=== PATIENT | male | born 1950 | race Hispanic/Latino ===

== ENCOUNTER 2020-01-30 22:32 | Inpatient (IN) | payer MEDICARE ==
--- NOTE | 2020-01-30 22:39 | Emergency Department Report ---
ED General Adult HPI - General Chief complaint: Medical Clearance Stated complaint: HYPOTENSION PUI?: No Time Seen by Provider: 01/30/20 22:32 Source: patient, EMS Mode of arrival: Stretcher Limitations: No Limitations - History of Present Illness Initial comments: Patient is a 69-year-old male that presents emergency room with hypotension. Patient is currently a patient at [facility] on a voluntary basis. 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 Patient brought in by EMS. EMS states that the patient has been hypotensive for the last 6 hours and actually according to the blood pressure log at the facility the patient's initial blood pressures morning was 70/50 and has been increasing. [facility] to be transferred to the ER for management of his hypotension. Patient's blood pressure by EMS was 96/60. Patient denies chest pain. Patient has shortness of breath. Patient denies weakness. Patient denies any physical complaints. Patient states he is hungry. Patient has a past medical history of CHF, A. fib, periodic hypotension, CKD 3, hypertension, neuropathy, pacemaker placement, diabetes. Patient's documents from [facility] reviewed. Patient denies recent travel. Patient denies recent international travel. Patient denies exposure to the novel coronavirus. Patient denies sick contacts. Patient denies fever and chills. Patient denies cough. Patient denies diarrhea. Patient denies coming in contact with anybody with symptoms of the novel coronavirus. -: Sudden Severity scale (0 -10): 0 Associated Symptoms: denies other symptoms. denies: confusion, chest pain, cough, diaphoresis, fever/chills, headaches, loss of appetite, malaise, nausea/vomiting, rash, seizure, shortness of breath, syncope, weakness Treatments Prior to Arrival: none - Related Data Home Medications Medication Instructions Recorded Confirmed Last Taken Amiodarone [Cordarone 200 MG TAB] 200 mg PO BID 01/25/20 01/31/20 01/23/20 21:00 Atorvastatin [Lipitor] 40 mg PO QHS 01/25/20 01/31/20 01/23/20 21:00 Gabapentin 300 mg PO QHS 01/31/20 01/31/20 Unknown Potassium Chloride 10 meq PO QDAY 01/31/20 01/31/20 Unknown Torsemide [Demadex] 20 mg PO BID 01/31/20 01/31/20 Unknown Previous Rx's Medication Instructions Recorded Last Taken Type Aspirin EC [Halfprin EC] 81 mg PO QDAY #30 tablet 01/26/20 Unknown Rx Allergies Allergy/AdvReac Type Severity Reaction Status Date / Time No Known Allergies Allergy Unverified 01/22/20 19:59 ED Review of Systems ROS: Stated complaint: HYPOTENSION Other details as noted in HPI Constitutional: denies: chills, fever Eyes: denies: eye pain, eye discharge, vision change ENT: denies: ear pain, throat pain Respiratory: denies: cough, shortness of breath, wheezing Cardiovascular: denies: chest pain, palpitations Endocrine: no symptoms reported Gastrointestinal: denies: abdominal pain, nausea, diarrhea Genitourinary: denies: urgency, dysuria Musculoskeletal: denies: back pain, joint swelling, arthralgia Skin: denies: rash, lesions Neurological: denies: headache, weakness, paresthesias Psychiatric: denies: anxiety, depression Hematological/Lymphatic: denies: easy bleeding, easy bruising ED Past Medical Hx - Past Medical History Previous Medical History?: Yes Hx Hypertension: Yes Hx Congestive Heart Failure: Yes Hx Diabetes: Yes Hx Renal Disease: Yes Hx Psychiatric Treatment: Yes Additional medical history: A. fib, pacemaker, periodic hypotension - Surgical History Past Surgical History?: Yes Hx Pacemaker: Yes - Family History Family history: no significant - Social History Smoking Status: Former Smoker Substance Use Type: None - Medications Home Medications: Home Medications Medication Instructions Recorded Confirmed Last Taken Type Amiodarone [Cordarone 200 MG TAB] 200 mg PO BID 01/25/20 01/31/20 01/23/20 21:00 History Atorvastatin [Lipitor] 40 mg PO QHS 01/25/20 01/31/20 01/23/20 21:00 History Aspirin EC [Halfprin EC] 81 mg PO QDAY #30 tablet 01/26/20 01/31/20 Unknown Rx Gabapentin 300 mg PO QHS 01/31/20 01/31/20 Unknown History Potassium Chloride 10 meq PO QDAY 01/31/20 01/31/20 Unknown History Torsemide [Demadex] 20 mg PO BID 01/31/20 01/31/20 Unknown History ED Physical Exam - General Limitations: No Limitations General appearance: alert, in no apparent distress - Head Head exam: Present: atraumatic, normocephalic - Eye Eye exam: Present: normal appearance, PERRL Pupils: Present: normal accommodation - ENT ENT exam: Present: mucous membranes moist - Neck Neck exam: Present: normal inspection - Respiratory Respiratory exam: Present: normal lung sounds bilaterally. Absent: respiratory distress, wheezes, rales - Cardiovascular Cardiovascular Exam: Present: regular rate, normal rhythm. Absent: systolic murmur, diastolic murmur, rubs, gallop - GI/Abdominal GI/Abdominal exam: Present: soft, normal bowel sounds - Rectal Rectal exam: Present: deferred - Extremities Exam Extremities exam: Present: normal inspection - Back Exam Back exam: Present: normal inspection - Neurological Exam Neurological exam: Present: alert, oriented X3 - Psychiatric Psychiatric exam: Present: normal affect, normal mood - Skin Skin exam: Present: warm, dry, intact, normal color. Absent: rash ED Course Vital Signs 01/30/20 01/30/20 01/30/20 22:54 22:56 23:00 Temperature 97.4 F L Pulse Rate 69 68 69 Respiratory 19 18 13 Rate Blood Pressure Blood Pressure 87/61 [Left] O2 Sat by Pulse 98 76 L Oximetry 01/30/20 01/31/20 01/31/20 23:05 00:00 01:00 Temperature Pulse Rate 66 68 Respiratory 18 18 20 Rate Blood Pressure 92/62 94/62 Blood Pressure [Left] O2 Sat by Pulse 99 98 Oximetry - Reevaluation(s) Reevaluation #1: Initial evaluation done. Patient's blood pressure above 90. We will connect the patient to our telemetry monitor and monitor blood pressure and give him some fluids. 01/30/20 22:32 Reevaluation #2: Patient's blood pressure is currently 99/60. Patient is resting comfortably in bed. Patient denies pain. Patient denies weakness. We will hold the patient's fluid at this time. Patient tolerated p.o. intake. 01/30/20 23:41 Reevaluation #3: Nurses unable to obtain peripheral IV. Right EJ placed. See procedure note. Fluids will be started at 250. 01/31/20 00:50 Reevaluation #4: I discussed all results with patient. I discussed plan of care with patient. Patient agrees with plan of care and admission. Patient to be admitted to the hospitalist service. 01/31/20 02:04 - Consultations Consultation #1: Hospitalist consulted for admission. Hospitalist to admit patient. 01/31/20 02:04 - EJ/Peripheral Line Neck R Time Out Performed: Yes Indications: nurses unable to establis Skin Cleansed in Sterile Fashion: Yes Size: 18 Dressing Placed: Tegaderm, tape Patient Tolerated Procedure: well, no complications ED Medical Decision Making - Lab Data Result diagrams: 01/30/20 22:58 01/30/20 22:58 - EKG Data -: EKG Interpreted by Me EKG shows normal: sinus rhythm, ST-T waves Rate: normal - EKG Data Interpretation: other (Wide QRS, paced rhythm, axis deviation) - Medical Decision Making Patient is a 69-year-old male that presents emergency room from a local psychiatric facility for management of his low blood pressure. Patient was found to be hypotensive. Patient is asymptomatic. Patient given fluids and his blood pressure improved. Patient had labs done which were consistent with acute renal failure. Patient appears to have chronic renal failure and his creatinine increased from 2-3 in less than a week. Patient was recently discharged from this hospital. Patient's EKG is abnormal but shows no acute findings. Patient admitted to the hospitalist service - Differential Diagnosis Hypotension, electrolyte imbalance, dehydration, kidney failure Critical Care Time: Yes Critical care time in (mins) excluding proc time.: 35 Critical care attestation.: If time is entered above; I have spent that time in minutes in the direct care of this critically ill patient, excluding procedure time. Critical Care Time: 35 minutes ED Disposition Clinical Impression: Hyponatremia, Dehydration, Elevated troponin Hypotension Qualifiers: Hypotension type: unspecified hypotension type Qualified Code(s): I95.9 - Hypotension, unspecified Acute renal failure Qualifiers: Acute renal failure type: unspecified Qualified Code(s): N17.9 - Acute kidney failure, unspecified Disposition: -09 OP ADMIT IP TO THIS HOSP Is pt being admited?: Yes Does the pt Need Aspirin: No Condition: Critical Time of Disposition: 02:57
[2020-01-30 23:13] LABS: Hemoglobin 10.8 gm/dl (11.8-15.2); Mean Corpuscular HGB Conc 33 % (32-34); Mean Corpuscular Volume 97 fl (84-94); Platelet Count 152 K/mm3 (140-440); Red Blood Count 3.39 M/mm3 (3.65-5.03); Red Cell Distribution Width 18.2 % (13.2-15.2)
[2020-01-30] MEDS: SODIUM CHLORIDE 0.9% 1000 ML 1,000 ML IV ONE (23:53)
[2020-01-31 00:07] LABS: Albumin 2.7 g/dL (3.9-5); Calcium 8.7 mg/dL (8.4-10.2)
[2020-01-31] MEDS: SODIUM CHLORIDE 0.9% 1000 ML 1,000 ML IV ONE (01:03)
[2020-01-31] MEDS ORDERED: ONDANSETRON 4 MG/2 ML INJ IV PRN (02:39)
[2020-01-31] MEDS ORDERED: MAGNESIUM HYDROXIDE (MOM) ORAL LIQD UDC PO PRN (02:39)
[2020-01-31] MEDS ORDERED: DEXTROSE 50% IN WATER (25GM) 50 ML SYRINGE IV PRN (02:40)
--- NOTE | 2020-01-31 02:48 | History and Physical Report ---
History of Present Illness Date of examination: 01/31/20 Date of admission: 01/31/2020 Chief complaint: Hypotension Depression History of present illness: 69 year-old male who was brought in from [facility] for hypotension. Patient was said to be hypotensive for couple of hours prior to reporting to the emergency room. Initial blood pressure was said to be 70s systolic and 50s diastolic. Patient has been at the psychiatric facility for depression. He also has significant past medical history of A. fib, CHF, chronic kidney disease stage III, hypertension, diabetes mellitus and neuropathy. He has a pacemaker in place. Patient denies any sick contacts and no recent travel. No contact with anyone with COVID-19. Upon arrival in the emergency room patient received some IV fluid with improvement in his blood pressure. Work-up in the emergency room however reveals slight bump in his creatinine from 2 to 3. Past History Past Medical History: atrial fib, diabetes, heart failure, other (Neuropathy) Past Surgical History: Other (Pacemaker placement) Social history: smoking (Former smoker) Family history: no significant family history Medications and Allergies Allergies Allergy/AdvReac Type Severity Reaction Status Date / Time No Known Allergies Allergy Unverified 01/22/20 19:59 Home Medications Medication Instructions Recorded Confirmed Last Taken Type Amiodarone [Cordarone 200 MG TAB] 200 mg PO BID 01/25/20 01/31/20 01/23/20 21:00 History Atorvastatin [Lipitor] 40 mg PO QHS 01/25/20 01/31/20 01/23/20 21:00 History Aspirin EC [Halfprin EC] 81 mg PO QDAY #30 tablet 01/26/20 01/31/20 Unknown Rx Gabapentin 300 mg PO QHS 01/31/20 01/31/20 Unknown History Potassium Chloride 10 meq PO QDAY 01/31/20 01/31/20 Unknown History Torsemide [Demadex] 20 mg PO BID 01/31/20 01/31/20 Unknown History Active Meds: Active Medications Acetaminophen (Tylenol) 650 mg PO Q4H PRN PRN Reason: Pain MILD(1-3)/Fever >100.5/MORENO Dextrose (D50w (25gm) Syringe) 50 ml IV Q30MIN PRN; Protocol PRN Reason: Hypoglycemia Sodium Chloride (Nacl 0.9% 1000 Ml) 1,000 mls @ 75 mls/hr IV DIRECT RINA Insulin Human Lispro (Humalog) 0 unit SUB-Q ACHS RINA; Protocol Magnesium Hydroxide (Milk Of Magnesia) 30 ml PO Q4H PRN PRN Reason: Constipation Ondansetron HCl (Zofran) 4 mg IV Q8H PRN PRN Reason: Nausea And Vomiting Sodium Chloride (Sodium Chloride Flush Syringe 10 Ml) 10 ml IV BID RINA Sodium Chloride (Sodium Chloride Flush Syringe 10 Ml) 10 ml IV PRN PRN PRN Reason: LINE FLUSH Review of Systems Constitutional: no fever, no chills Ears, nose, mouth and throat: no nasal congestion, no sore throat Cardiovascular: no chest pain, no palpitations Respiratory: no cough, no shortness of breath Gastrointestinal: no abdominal pain, no nausea, no vomiting, no diarrhea Genitourinary Male: no dysuria, no hematuria, no flank pain Musculoskeletal: no neck pain, no low back pain Integumentary: no rash, no pruritis Neurological: no headaches, no confusion Psychiatric: depression, no anxiety Exam - Constitutional Vitals: Temp Pulse Resp BP Pulse Ox 97.4 F L 68 20 94/62 98 01/30/20 22:56 01/31/20 01:00 01/31/20 01:00 01/31/20 01:00 01/31/20 00:00 General appearance: Present: no acute distress, well-nourished - EENT Eyes: Present: PERRL, EOM intact. Absent: scleral icterus ENT: hearing intact, clear oral mucosa, dentition normal - Neck Neck: Present: supple, normal ROM - Respiratory Respiratory effort: normal Respiratory: bilateral: CTA - Cardiovascular Rhythm: irregularly irregular Heart Sounds: Present: S1 & S2. Absent: gallop, rub - Extremities Extremities: no ischemia, pulses intact, pulses symmetrical, No edema, Full ROM Extremity abnormal: edema (2+ bilateral lower extremity edema) Peripheral Pulses: within normal limits - Abdominal General gastrointestinal: Present: soft, non-tender, non-distended, normal bowel sounds - Integumentary Integumentary: Present: clear, warm, dry. Absent: jaundice, rash - Musculoskeletal Musculoskeletal: strength equal bilaterally - Psychiatric Psychiatric: appropriate mood/affect, intact judgment & insight, memory intact, cooperative - Neurologic Neurologic: CNII-XII intact, moves all extremities HEART Score - HEART Score Troponin: Troponin T 0.207 ng/mL (0.00-0.029) H* 01/31/20 01:01 Results - Labs CBC & Chem 7: 01/30/20 22:58 01/30/20 22:58 Labs: Abnormal lab results 01/30/20 01/30/20 01/31/20 Range/Units 22:58 22:58 01:01 RBC 3.39 L (3.65-5.03) M/mm3 Hgb 10.8 L (11.8-15.2) gm/dl Hct 33.0 L (35.5-45.6) % MCV 97 H (84-94) fl RDW 18.2 H (13.2-15.2) % Sodium 131 L D (137-145) mmol/L Carbon Dioxide 10 L (22-30) mmol/L BUN 58 H (9-20) mg/dL Creatinine 3.0 H (0.8-1.5) mg/dL Glucose 159 H (75-100) mg/dL Total Bilirubin 1.90 H (0.1-1.2) mg/dL AST 149 H (5-40) units/L ALT 546 H (7-56) units/L Troponin T 0.207 H* (0.00-0.029) ng/mL Albumin 2.7 L (3.9-5) g/dL Assessment and Plan - Patient Problems (1) Hypotension Current Visit: Yes Status: Acute Qualifiers: Hypotension type: unspecified hypotension type Qualified Code(s): I95.9 - Hypotension, unspecified Plan to address problem: Patient has received some IV fluid with significant improvement in his blood pressure. Will monitor vital signs closely. (2) Diabetes mellitus Current Visit: Yes Status: Acute Plan to address problem: We will monitor Accu-Cheks and continue routine home medications. (3) Depression Current Visit: Yes Status: Acute Plan to address problem: Patient will be closely monitored and will also place a consult to mental health for further evaluation and recommendation. (4) Dehydration Current Visit: Yes Status: Acute Plan to address problem: Patient receiving gentle IV fluid rehydration (5) DVT prophylaxis Current Visit: No Status: Acute Plan to address problem: Placed on subcutaneous heparin. (6) Full code status Current Visit: No Status: Acute
[2020-01-31 02:50] LABS: Chol/HDL Ratio 4.31 %
[2020-01-31] MEDS: SODIUM CHLORIDE 0.9% 1000 ML 1,000 ML IV SCH ×2 (05:00→20:00)
[2020-01-31] MEDS: INSULIN LISPRO 100 UNIT/ML SUB-Q SCH ×4 (09:20→21:51)
[2020-01-31 10:09] LABS: Calcium 8.7 mg/dL (8.4-10.2)
--- NOTE | 2020-01-31 13:46 | Event Note ---
Date: 01/31/20 Patient seen and examined. This is a follow-up from an admission earlier this morning. We will continue to plan as outlined in H&P. Total visit equals 35 minutes with greater than 50% spent on coordination of care and counseling.
--- NOTE | 2020-01-31 18:41 | Consultation ---
History of Present Illness - Reason for Consult Consult date: 01/31/20 Reason for consult: MHE Requesting physician: ARNOL GRANT III - Chief Complaint Chief complaint: Hypotension Depression - History of Present Psychiatric Illness Per ED Provider: Patient is a 69-year-old male that presents emergency room with hypotension. Patient is currently a patient at [facility] on a voluntary basis. 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 Patie nt brought in by EMS. EMS states that the patient has been hypotensive for the last 6 hours and actually according to the blood pressure log at the facility the patient's initial blood pressures morning was 70/50 and has been increasing. [facility] to be transferred to the ER for management of his hypotension. Patient's blood pressure by EMS was 96/60. Patient denies chest pain. Patient has shortness of breath. Patient denies weakness. Patient denies any physical complaints. Patient states he is hungry. Patient has a past medical history of CHF, A. fib, periodic hypotension, CKD 3, hypertension, neuropathy, pacemaker placement, diabetes. HPI Patient is a 69 year old , disabled male with Past Psychiatry history of MDD and multiple medical comorbidty presented for MHE due to Depression. Patient was admitted to this facility for medical reasons but was at [facility] for psychiatric management of depression voluntarily. Patient states that he is very depressed, and his depression is mostly due to his medical condition because he cannot get rid of what he got and he keeps getting admitted for medical reasons. Patients state that he is not suicidal and does not want to , he says he has a dog currenlty living with his friend that he loves very much, states he would have been happier if they let him have his wallet because his friends phone number is inside and he would like to atleast call and let them know where and how he is doing. He denies any SI, HI, AVH. Patients states he has lost both of his parents, his only son does not want to talk to him because he the mother and does not have any family support. PAST PSYCHIATRIC HISTORY Diagnoses: MDD Suicide attempts or Self-harm behavior: None reported Prior psychiatric hospitalizations: Yes at multiple facilities Substance Abuse history:none reported Previous psychiatric medications tried: YES Outpatient treatment: Yes but provider name unknown PAST MEDICAL HISTORY: Afib, CKD, CHF, HTN Family Psychiatric History: none reported SOCIAL HISTORY Marital Status: Living Arrangements: Lives with a friend Employment Status: Retired Access to guns/weapons: None reported Education: College History of Abuse: None reported Legal History: None reported REVIEW OF SYSTEMS Constitutional: Negative for weight loss ENT: Negative for stridor Respiratory: Negative for cough or hemoptysis All other systems reviewed and are negative MENTAL STATUS EXAMINATION General Appearance and Behavior: Disheveled , age appropriate, wearing appropriate clothes, lying in bed, good eye contact, cooperative Cooperation: Participating/engaged Psychomotor Behavior: unremarkable and within normal limits Mood: depressed Affect and affective range: Congruent with mood Thought Process: Logical Thought Content: within reality Speech: Normal volume, Regular rate and rhythm Intellectual Functioning: Average Suicidal Ideation: Denies Homicidal Ideation: Denies HI Impulse Control: Unimpaired Insight and Judgment: Normal insight and judgment. Memory: Normal Attention: Normal Orientation: Alert, oriented Assessment and Plan - Psychiatric problem (1) Acute schizophrenic episode (2) Bipolar 1 manic Current Visit: Yes Status: Acute RECOMMENDATIONS I offered to start patient on medication for Depression but patient declined. Pt denies SI, HI and does not present with any psychotic features. Risks, benefits and alternatives of medications discussed with the patient, ques tions answered and consent obtained from patient. PSYCHOTHERAPY: Supportive psychotherapy provided MEDICAL: Per primary team DELIRIUM PRECAUTIONS: Please re-orient patient frequently, keep lights on during the day, and minimize benzodiazepines and opiates as these medications could worsen patient's confusion. 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 Will sign off Thank you for the consult. Please contact with any questions and/or concerns. Medications and Allergies Allergies Allergy/AdvReac Type Severity Reaction Status Date / Time No Known Allergies Allergy Unverified 01/22/20 19:59 Home Medications Medication Instructions Recorded Confirmed Last Taken Type Amiodarone [Cordarone 200 MG TAB] 200 mg PO BID 01/25/20 01/31/20 01/23/20 21:00 History Atorvastatin [Lipitor] 40 mg PO QHS 01/25/20 01/31/20 01/23/20 21:00 History Aspirin EC [Halfprin EC] 81 mg PO QDAY #30 tablet 01/26/20 01/31/20 Unknown Rx Gabapentin 300 mg PO QHS 01/31/20 01/31/20 Unknown History Potassium Chloride 10 meq PO QDAY 01/31/20 01/31/20 Unknown History Torsemide [Demadex] 20 mg PO BID 01/31/20 01/31/20 Unknown History Active Meds: Active Medications Acetaminophen (Tylenol) 650 mg PO Q4H PRN PRN Reason: Pain MILD(1-3)/Fever >100.5/MORENO Dextrose (D50w (25gm) Syringe) 0 ml IV Q30MIN PRN; Protocol PRN Reason: Hypoglycemia Sodium Chloride (Nacl 0.9% 1000 Ml) 1,000 mls @ 75 mls/hr IV DIRECT RINA Last Admin: 01/31/20 05:00 Dose: 75 mls/hr Documented by: Insulin Human Lispro (Humalog) 0 unit SUB-Q ACHS RINA; Protocol Last Admin: 01/31/20 17:05 Dose: 2 unit Documented by: Magnesium Hydroxide (Milk Of Magnesia) 30 ml PO Q4H PRN PRN Reason: Constipation Ondansetron HCl (Zofran) 4 mg IV Q8H PRN PRN Reason: Nausea And Vomiting Sodium Chloride (Sodium Chloride Flush Syringe 10 Ml) 10 ml IV BID [facility] Last Admin: 01/31/20 09:25 Dose: 10 ml Documented by: Sodium Chloride (Sodium Chloride Flush Syringe 10 Ml) 10 ml IV PRN PRN PRN Reason: LINE FLUSH Mental Status Exam - Vital signs Last Vital Signs Temp 98.1 F 01/31/20 08:05 Pulse 70 01/31/20 05:00 Resp 18 01/31/20 08:05 BP 103/75 01/31/20 08:05 Pulse Ox 95 01/31/20 05:10 Results Result Diagrams: 01/30/20 22:58 01/31/20 09:25 Abnormal lab results 01/30/20 01/30/20 01/31/20 Range/Units 22:58 22:58 01:01 RBC 3.39 L (3.65-5.03) M/mm3 Hgb 10.8 L (11.8-15.2) gm/dl Hct 33.0 L (35.5-45.6) % MCV 97 H (84-94) fl RDW 18.2 H (13.2-15.2) % Sodium 131 L D (137-145) mmol/L Potassium (3.6-5.0) mmol/L Carbon Dioxide 10 L (22-30) mmol/L BUN 58 H (9-20) mg/dL Creatinine 3.0 H (0.8-1.5) mg/dL Glucose 159 H (75-100) mg/dL POC Glucose (70-105) Total Bilirubin 1.90 H (0.1-1.2) mg/dL AST 149 H (5-40) units/L ALT 546 H (7-56) units/L Troponin T 0.207 H* (0.00-0.029) ng/mL Albumin 2.7 L (3.9-5) g/dL LDL Cholesterol Direct 36 L (50-130) mg/dL HDL Cholesterol 19 L (40-59) mg/dL 01/31/20 01/31/20 01/31/20 Range/Units 07:46 09:25 11:39 RBC (3.65-5.03) M/mm3 Hgb (11.8-15.2) gm/dl Hct (35.5-45.6) % MCV (84-94) fl RDW (13.2-15.2) % Sodium 134 L (137-145) mmol/L Potassium 5.1 H (3.6-5.0) mmol/L Carbon Dioxide 19 L D (22-30) mmol/L BUN 59 H (9-20) mg/dL Creatinine 3.5 H (0.8-1.5) mg/dL Glucose 150 H (75-100) mg/dL POC Glucose 154 H 177 H (70-105) Total Bilirubin (0.1-1.2) mg/dL AST (5-40) units/L ALT (7-56) units/L Troponin T (0.00-0.029) ng/mL Albumin (3.9-5) g/dL LDL Cholesterol Direct (50-130) mg/dL HDL Cholesterol (40-59) mg/dL 01/31/20 Range/Units 15:55 RBC (3.65-5.03) M/mm3 Hgb (11.8-15.2) gm/dl Hct (35.5-45.6) % MCV (84-94) fl RDW (13.2-15.2) % Sodium (137-145) mmol/L Potassium (3.6-5.0) mmol/L Carbon Dioxide (22-30) mmol/L BUN (9-20) mg/dL Creatinine (0.8-1.5) mg/dL Glucose (75-100) mg/dL POC Glucose 162 H (70-105) Total Bilirubin (0.1-1.2) mg/dL AST (5-40) units/L ALT (7-56) units/L Troponin T (0.00-0.029) ng/mL Albumin (3.9-5) g/dL LDL Cholesterol Direct (50-130) mg/dL HDL Cholesterol (40-59) mg/dL All other labs normal.
[2020-02-01 05:35] LABS: Hematocrit 34.6 % (35.5-45.6); Hemoglobin 11.2 gm/dl (11.8-15.2); Mean Corpuscular HGB Conc 32 % (32-34); Mean Corpuscular Volume 95 fl (84-94); Platelet Count 164 K/mm3 (140-440); Red Blood Count 3.65 M/mm3 (3.65-5.03); Red Cell Distribution Width 17.4 % (13.2-15.2)
[2020-02-01 05:56] LABS: INR 1.88 (0.87-1.13)
[2020-02-01 06:20] LABS: BUN/Creatinine Ratio TNR; Blood Urea Nitrogen TNR mg/dL (9-20)
[2020-02-01 06:21] LABS: Calcium TNR mg/dL (8.4-10.2); Hemolysis Index TNR
[2020-02-01 06:59] LABS: Anisocytosis Few; Basophils % (Manual) 0 % (0.0-1.8); Eosinophils % (Manual) 0 % (0.0-4.3); Total Cells Counted 100
[2020-02-01 07:00] LABS: Macrocytosis Few; Ovalocytes Few; Platelet Estimate Consistent w Auto
[2020-02-01 09:38] LABS: Calcium 8.7 mg/dL (8.4-10.2)
--- NOTE | 2020-02-01 09:40 | Progress Note ---
Assessment and Plan Assessment and plan: Hypotension. Patient is s/p IV fluid hydration and blood pressure has stabilized. Asymptomatic. ALONSO on CKD. Patient appears to have a baseline creatinine of 2.0 which has increased to 3.5 since admission. Nephrology consultation. Acute schizophrenic episode/bipolar 1/manic. Psychiatry reports that the patient meets the requirement for acute inpatient psychiatric treatment. History Interval history: No new issues overnight. Hospitalist Physical - Constitutional Vitals: Temp Pulse Resp BP Pulse Ox 98.1 F 64 20 100/66 93 02/01/20 05:31 02/01/20 05:31 02/01/20 05:31 02/01/20 05:31 02/01/20 09:14 General appearance: Present: no acute distress, well-nourished - EENT Eyes: Present: PERRL, EOM intact ENT: hearing intact, clear oral mucosa, dentition normal - Neck Neck: Present: supple, normal ROM - Respiratory Respiratory effort: normal Respiratory: bilateral: CTA - Cardiovascular Rhythm: regular Heart Sounds: Present: S1 & S2. Absent: gallop, rub - Extremities Extremities: no ischemia, No edema, Full ROM - Abdominal General gastrointestinal: soft, non-tender, non-distended, normal bowel sounds - Integumentary Integumentary: Present: clear, warm, dry - Neurologic Neurologic: CNII-XII intact, moves all extremities HEART Score - HEART Score Troponin: Troponin T 0.207 ng/mL (0.00-0.029) H* 01/31/20 01:01 Results - Labs CBC & Chem 7: 02/01/20 05:11 02/01/20 05:11 Labs: Laboratory Last Values WBC 8.9 K/mm3 (4.5-11.0) 02/01/20 05:11 RBC 3.65 M/mm3 (3.65-5.03) 02/01/20 05:11 Hgb 11.2 gm/dl (11.8-15.2) L 02/01/20 05:11 Hct 34.6 % (35.5-45.6) L 02/01/20 05:11 MCV 95 fl (84-94) H 02/01/20 05:11 MCH 31 pg (28-32) 02/01/20 05:11 MCHC 32 % (32-34) 02/01/20 05:11 RDW 17.4 % (13.2-15.2) H 02/01/20 05:11 Plt Count 164 K/mm3 (140-440) 02/01/20 05:11 Mccormick % (Auto) Auto Camp Attendant 02/01/20 05:11 Add Manual Diff Complete 02/01/20 05:11 Total Counted 100 02/01/20 05:11 Seg Neuts % (Manual) 76.0 % (40.0-70.0) H 02/01/20 05:11 Band Neutrophils % 0 % 02/01/20 05:11 Lymphocytes % (Manual) 20.0 % (13.4-35.0) 02/01/20 05:11 Reactive Lymphs % (Man) 0 % 02/01/20 05:11 Monocytes % (Manual) 4.0 % (0.0-7.3) 02/01/20 05:11 Eosinophils % (Manual) 0 % (0.0-4.3) 02/01/20 05:11 Basophils % (Manual) 0 % (0.0-1.8) 02/01/20 05:11 Metamyelocytes % 0 % 02/01/20 05:11 Myelocytes % 0 % 02/01/20 05:11 Promyelocytes % 0 % 02/01/20 05:11 Blast Cells % 0 % 02/01/20 05:11 Nucleated RBC % Not Reportable 02/01/20 05:11 Seg Neutrophils # Man 6.8 K/mm3 (1.8-7.7) 02/01/20 05:11 Band Neutrophils # 0.0 K/mm3 02/01/20 05:11 Lymphocytes # (Manual) 1.8 K/mm3 (1.2-5.4) 02/01/20 05:11 Abs React Lymphs (Man) 0.0 K/mm3 02/01/20 05:11 Monocytes # (Manual) 0.4 K/mm3 (0.0-0.8) 02/01/20 05:11 Eosinophils # (Manual) 0.0 K/mm3 (0.0-0.4) 02/01/20 05:11 Basophils # (Manual) 0.0 K/mm3 (0.0-0.1) 02/01/20 05:11 Metamyelocytes # 0.0 K/mm3 02/01/20 05:11 Myelocytes # 0.0 K/mm3 02/01/20 05:11 Promyelocytes # 0.0 K/mm3 02/01/20 05:11 Blast Cells # 0.0 K/mm3 02/01/20 05:11 WBC Morphology Not Reportable 02/01/20 05:11 Hypersegmented Neuts Not Reportable 02/01/20 05:11 Hyposegmented Neuts Not Reportable 02/01/20 05:11 Hypogranular Neuts Not Reportable 02/01/20 05:11 Smudge Cells Not Reportable 02/01/20 05:11 Toxic Granulation Not Reportable 02/01/20 05:11 Toxic Vacuolation Not Reportable 02/01/20 05:11 Dohle Bodies Not Reportable 02/01/20 05:11 Pelger-Huet Anomaly Not Reportable 02/01/20 05:11 Justin Rods Not Reportable 02/01/20 05:11 Platelet Estimate Consistent w auto 02/01/20 05:11 Clumped Platelets Not Reportable 02/01/20 05:11 Plt Clumps, EDTA Not Reportable 02/01/20 05:11 Large Platelets Not Reportable 02/01/20 05:11 Giant Platelets Not Reportable 02/01/20 05:11 Platelet Satelliting Not Reportable 02/01/20 05:11 Plt Morphology Comment Not Reportable 02/01/20 05:11 RBC Morphology Not Reportable 02/01/20 05:11 Dimorphic RBCs Not Reportable 02/01/20 05:11 Polychromasia Not Reportable 02/01/20 05:11 Hypochromasia Not Reportable 02/01/20 05:11 Poikilocytosis Not Reportable 02/01/20 05:11 Anisocytosis Few 02/01/20 05:11 Microcytosis Few 02/01/20 05:11 Macrocytosis Few 02/01/20 05:11 Spherocytes Not Reportable 02/01/20 05:11 Pappenheimer Bodies Not Reportable 02/01/20 05:11 Sickle Cells Not Reportable 02/01/20 05:11 Target Cells Not Reportable 02/01/20 05:11 Tear Drop Cells Not Reportable 02/01/20 05:11 Ovalocytes Few 02/01/20 05:11 Helmet Cells Not Reportable 02/01/20 05:11 Albert-Derwood Bodies Not Reportable 02/01/20 05:11 [place] Rings Not Reportable 02/01/20 05:11 Bonner Cells Not Reportable 02/01/20 05:11 Bite Cells Not Reportable 02/01/20 05:11 Crenated Cell Not Reportable 02/01/20 05:11 Elliptocytes Not Reportable 02/01/20 05:11 Acanthocytes (Spur) Not Reportable 02/01/20 05:11 Rouleaux Not Reportable 02/01/20 05:11 Hemoglobin C Crystals Not Reportable 02/01/20 05:11 Schistocytes Not Reportable 02/01/20 05:11 Malaria parasites Not Reportable 02/01/20 05:11 Fab Bodies Not Reportable 02/01/20 05:11 Hem Pathologist Commnt No 02/01/20 05:11 PT 21.6 Sec. (12.2-14.9) H 02/01/20 05:11 INR 1.88 (0.87-1.13) H 02/01/20 05:11 Sodium TNR 02/01/20 05:11 Potassium TNR 02/01/20 05:11 Chloride TNR 02/01/20 05:11 Carbon Dioxide TNR 02/01/20 05:11 Anion Gap TNR 02/01/20 05:11 BUN TNR 02/01/20 05:11 Creatinine TNR 02/01/20 05:11 Estimated GFR TNR 02/01/20 05:11 BUN/Creatinine Ratio TNR 02/01/20 05:11 Glucose TNR 02/01/20 05:11 POC Glucose 137 (70-105) H 02/01/20 08:15 Calcium TNR 02/01/20 05:11 Total Bilirubin 1.90 mg/dL (0.1-1.2) H 01/30/20 22:58 AST 149 units/L (5-40) H 01/30/20 22:58 ALT 546 units/L (7-56) H 01/30/20 22:58 Alkaline Phosphatase 120 units/L (35-129) 01/30/20 22:58 Troponin T 0.207 ng/mL (0.00-0.029) H* 01/31/20 01:01 Total Protein 7.3 g/dL (6.3-8.2) 01/30/20 22:58 Albumin 2.7 g/dL (3.9-5) L 01/30/20 22:58 Albumin/Globulin Ratio 0.6 % 01/30/20 22:58 Triglycerides 137 mg/dL (2-149) 01/31/20 01:01 Cholesterol 82 mg/dL (50-199) 01/31/20 01:01 LDL Cholesterol Direct 36 mg/dL (50-130) L 01/31/20 01:01 HDL Cholesterol 19 mg/dL (40-59) L 01/31/20 01:01 Cholesterol/HDL Ratio 4.31 % 01/31/20 01:01 Nasal Screen MRSA (PCR) Negative (Negative) 01/31/20 Unknown Menezes/IV: Voiding Method Urinal IV Catheter Type [right ej] Peripheral IV Active Medications - Current Medications Current Medications: Generic Name Dose Route Start Last Admin Trade Name Freq PRN Reason Stop Dose Admin Acetaminophen 650 mg 01/31/20 02:39 Tylenol PO Q4H PRN Pain MILD(1-3)/Fever >100.5/MORENO Dextrose 0 ml 01/31/20 02:40 D50w (25gm) Syringe IV Q30MIN PRN Hypoglycemia Protocol Sodium Chloride 1,000 mls @ 75 mls/hr 01/31/20 02:45 01/31/20 20:00 Nacl 0.9% 1000 Ml IV 75 mls/hr DIRECT RINA Administration Insulin Human Lispro 0 unit 01/31/20 07:30 01/31/20 21:51 Humalog SUB-Q Not Given ACHS RINA Protocol Magnesium Hydroxide 30 ml 01/31/20 02:39 Milk Of Magnesia PO Q4H PRN Constipation Ondansetron HCl 4 mg 01/31/20 02:39 Zofran IV Q8H PRN Nausea And Vomiting Sodium Chloride 10 ml 01/31/20 10:00 01/31/20 21:51 Sodium Chloride Flush Syringe 10 Ml IV 10 ml BID RINA Administration Sodium Chloride 10 ml 01/31/20 02:39 Sodium Chloride Flush Syringe 10 Ml IV PRN PRN LINE FLUSH Nutrition/Malnutrition Assess - Dietary Evaluation Nutrition/Malnutrition Findings: Nutrition Notes Start: 01/31/20 14:23 Freq: Status: Active Protocol: Document 01/31/20 14:23 LP (Rec: 01/31/20 14:29 LP [id number]) Nutrition Notes Need for Assessment generated from: MD Order Initial or Follow up Assessment Current Diagnosis CKD(stage I-IV),Diabetes, Hypertension,Heart Failure Other Pertinent Diagnosis hypotension, dehydration Current Diet Cardiac/consistent CHO Labs/Tests 01/30/20 Na 131 K 5 BUN 58 Cr 3 BG 159 Bili 1.9 Pertinent Medications Reviewed Height 5 ft 9 in Weight 88.451 kg [place] Body Weight (kg) 72.72 BMI 28.8 Weight Status Overweight Subjective/Other Information Consult for diet education. Pt exhausted and has been coughing. Pt states he is unable to eat and drinking very little but willing to try supplement. Burn Absent Trauma Absent GI Symptoms None Current % PO Negligible Minimum of two criteria Yes Energy Intake (non-severe) <75% Estimated Energy Requirement >7 days Fluid Accumulation Mild (non-severe) #1 Nutrition Diagnosis Malnutrition Etiology coughing As Evidenced by Signs and Symptoms Pt states not eating because of peristent cough, 2+ edema Is patient on ventilator? No Is Patient Ambulatory and/or Out of Bed Yes REE-([place]-ambulatory/OOB) [ 2118.857 [id number]] Calculation Used for Recommendations [place] or Additional Notes Protein needs are 88-106g (1-1 .2g/kg) Fluid needs are 1ml/kcal Nutrition Intervention Change Diet Order: Continue Add Supplement/Snack (indicate name/kcal Glucerna TID Chocolate /protein ) Provides kCal: 660 Provides Protein (gm) 30 Goal #1 Meet at least 80% of kcal and protein needs Anticipated Discharge Needs: Cardiac/consistent CHO diet Follow-Up By: 02/03/20 Additional Comments Follow for intakes
[2020-02-01] MEDS: INSULIN LISPRO 100 UNIT/ML SUB-Q SCH ×4 (11:12→22:06)
--- NOTE | 2020-02-01 12:28 | Consultation ---
History of Present Illness - Reason for Consult Consult date: 02/01/20 acute renal failure, chronic renal failure - History of Present Illness The patient is a 69 YO male with history significant for DM, Nonischemic cardiomyopathy, CHF, AICD, A.fib, CKD stage 3, neuropathy and major depression who was brought to [facility] ED 01/29 from [facility] for hypotension. Patient is a very poor historian and most of the information was obtained from chart review. He was said to be hypotensive for couple of hours prior to reporting to the emergency room. On arrival to ED his blood pressure was around 90/60. Patient received IV fluids with improvement in his blood pressure. Labs significant for Creat 3.7, K 5.1 and bicarb 17. Nephrology was consulted for further evaluation. Past History Past Medical History: atrial fib, diabetes, heart failure, renal failure, other (Neuropathy) Past Surgical History: Other (Pacemaker placement) Social history: smoking (Former smoker) Family history: no significant family history Medications and Allergies Allergies Allergy/AdvReac Type Severity Reaction Status Date / Time No Known Allergies Allergy Unverified 01/22/20 19:59 Home Medications Medication Instructions Recorded Confirmed Last Taken Type Amiodarone [Cordarone 200 MG TAB] 200 mg PO BID 01/25/20 01/31/20 01/23/20 21:00 History Atorvastatin [Lipitor] 40 mg PO QHS 01/25/20 01/31/20 01/23/20 21:00 History Aspirin EC [Halfprin EC] 81 mg PO QDAY #30 tablet 01/26/20 01/31/20 Unknown Rx Gabapentin 300 mg PO QHS 01/31/20 01/31/20 Unknown History Potassium Chloride 10 meq PO QDAY 01/31/20 01/31/20 Unknown History Torsemide [Demadex] 20 mg PO BID 01/31/20 01/31/20 Unknown History Active Meds: Active Medications Acetaminophen (Tylenol) 650 mg PO Q4H PRN PRN Reason: Pain MILD(1-3)/Fever >100.5/MORENO Dextrose (D50w (25gm) Syringe) 0 ml IV Q30MIN PRN; Protocol PRN Reason: Hypoglycemia Sodium Chloride (Nacl 0.9% 1000 Ml) 1,000 mls @ 75 mls/hr IV DIRECT RINA Last Admin: 01/31/20 20:00 Dose: 75 mls/hr Documented by: Insulin Human Lispro (Humalog) 0 unit SUB-Q ACHS [facility]; Protocol Last Admin: 02/01/20 11:12 Dose: Not Given Documented by: Magnesium Hydroxide (Milk Of Magnesia) 30 ml PO Q4H PRN PRN Reason: Constipation Ondansetron HCl (Zofran) 4 mg IV Q8H PRN PRN Reason: Nausea And Vomiting Sodium Chloride (Sodium Chloride Flush Syringe 10 Ml) 10 ml IV BID [facility] Last Admin: 02/01/20 11:12 Dose: 10 ml Documented by: Sodium Chloride (Sodium Chloride Flush Syringe 10 Ml) 10 ml IV PRN PRN PRN Reason: LINE FLUSH Review of Systems ROS unobtainable: due to mental status Exam - Vital Signs Vital signs: Vital Signs Pulse Resp 69 19 01/30/20 22:54 01/30/20 22:54 - General Appearance General appearance: well-developed, appears stated age, other (no distress) EENT: ATNC, PERRL, hearing intact, vision intact Neck: Present: neck supple, trachea midline Respiratory: Clear to Ascultation Heart: S1S2, no murmurs Gastrointestinal: Present: normoactive bowel sounds. Absent: tenderness, distended Integumentary: no rash, warm and dry Neurologic: no focal deficit, no asterixis, confused, disoriented Musculoskeletal: Present: other (trace to 1+ LE edema noted) Psychiatric: cooperative Results - Lab Results 02/01/20 05:11 02/01/20 08:45 Most recent lab results Calcium 8.7 mg/dL (8.4-10.2) 02/01/20 08:45 - Image Kidney/bladder ultrasound: pending Assessment and Plan 1. Acute kidney injury: Vasomotor ALONSO superimposed on CKD in the setting hypotension. Urine studies and Renal US ordered. Monitor renal function. Renal prognosis is guarded. Gentle IV fluids. Avoid nephrotoxic agents. Meds dosage based on GFR. 2. FEN: Anion-gap metabolic acidosis, Sodium bicarb drip, monitor. Monitor lytes and volume status. 3. Hypotension: BP is better. Not on pressors. Cause unclear. 4. H/o combined CHF: Monitor volume status. CXR ordered. diuretics if needed. 5. Acute schizophrenic episode / bipolar 1 / shanice: Patient meets the requirement for acute inpatient psychiatric treatment. 6. Elevated LFTs: Likely from hypotension. Monitor.
[2020-02-01] MEDS ORDERED: SODIUM BICARBONATE 150 MEQ in /WATER, STERILE 1,000 SYR IV SCH (13:00)
--- NOTE | 2020-02-01 13:27 | XRay Report ---
CHEST 1 VIEW INDICATION / CLINICAL INFORMATION: CHF.. COMPARISON: 01/25/2020 FINDINGS: SUPPORT DEVICES: Pacemaker device is stable in position. HEART / MEDIASTINUM: Stable. LUNGS / PLEURA: There continues to be some minimal interstitial pulmonary edema with very small bilat eral pleural effusions. There is minimal by basilar parenchymal disease which I suspect is atelectasi s. Overall, the appearance is not significantly changed from prior recent exam of 01/25/2020. No pneum othorax. ADDITIONAL FINDINGS: No significant additional findings. IMPRESSION: 1. Stable appearance of the chest radiograph compared with 01/25/2020 Signer Name: Kandi Vera MD Signed: 02/01/2020 1:22 PM Workstation Name: [id number]
[2020-02-01] MEDS ORDERED: SODIUM BICARBONATE 150 MEQ in WATER FOR INJECTION (PF) 1,000 ML IV SCH (14:00)
--- NOTE | 2020-02-02 05:10 | Event Note ---
Date: 02/02/20 RN called to inform of no urine output for the shift while on IVF. Notes reviewed, renal prognosis guarded per nephrology. Order given to bladder scan and straight cath per [facility] protocol.
[2020-02-02 05:39] LABS: Creatinine,Urine 165.1 mg/dL (0.1-20.0)
[2020-02-02 05:40] LABS: Amorphous Crystals,Urine Few; Bacteria,Urine 1+ /HPF (Negative); Bilirubin,Urine NEG (Negative); Blood,Urine NEG (Negative); Color,Urine Amber (Yellow); Hyaline Casts,Urine 9 /LPF; Mucus,Urine FEW /HPF
[2020-02-02 06:28] LABS: Albumin 3.5 g/dL (3.9-5)
--- NOTE | 2020-02-02 09:38 | Progress Note ---
Assessment and Plan Assessment and plan: Hypotension. Patient is s/p IV fluid hydration and blood pressure has stabilized. Asymptomatic. ALONSO on CKD. Patient appears to have a baseline creatinine of 2.0 which has increased to 3.5 since admission. Nephrology consultation. History of combined CHF. Fluid management per nephrology. Elevated LFTs. Etiology likely secondary to hypotension. Acute schizophrenic episode/bipolar 1/manic. Psychiatry reports that the patient meets the requirement for acute inpatient psychiatric treatment. 02/02/2020. Creatinine remains at 3.7. Follow-up BMP in a.m. Continue IV fluid per nephrology recommendations. History Interval history: No new issues overnight. Hospitalist Physical - Constitutional Vitals: Temp Pulse Resp BP Pulse Ox 97.5 F L 72 18 98/53 93 02/02/20 07:33 02/02/20 00:00 02/02/20 07:33 02/02/20 07:33 02/02/20 09:16 General appearance: Present: no acute distress, well-nourished - EENT Eyes: Present: PERRL, EOM intact ENT: hearing intact, clear oral mucosa, dentition normal - Neck Neck: Present: supple, normal ROM - Respiratory Respiratory effort: normal Respiratory: bilateral: CTA - Cardiovascular Rhythm: regular Heart Sounds: Present: S1 & S2. Absent: gallop, rub - Extremities Extremities: no ischemia, No edema, Full ROM - Abdominal General gastrointestinal: soft, non-tender, non-distended, normal bowel sounds - Integumentary Integumentary: Present: clear, warm, dry - Neurologic Neurologic: CNII-XII intact, moves all extremities HEART Score - HEART Score Troponin: Troponin T 0.207 ng/mL (0.00-0.029) H* 01/31/20 01:01 Results - Labs CBC & Chem 7: 02/01/20 05:11 02/02/20 05:46 Labs: Laboratory Last Values WBC 8.9 K/mm3 (4.5-11.0) 02/01/20 05:11 RBC 3.65 M/mm3 (3.65-5.03) 02/01/20 05:11 Hgb 11.2 gm/dl (11.8-15.2) L 02/01/20 05:11 Hct 34.6 % (35.5-45.6) L 02/01/20 05:11 MCV 95 fl (84-94) H 02/01/20 05:11 MCH 31 pg (28-32) 02/01/20 05:11 MCHC 32 % (32-34) 02/01/20 05:11 RDW 17.4 % (13.2-15.2) H 02/01/20 05:11 Plt Count 164 K/mm3 (140-440) 02/01/20 05:11 [place] % (Auto) [employer]itank [employer] 02/01/20 05:11 Add Manual Diff Complete 02/01/20 05:11 Total Counted 100 02/01/20 05:11 Seg Neuts % (Manual) 76.0 % (40.0-70.0) H 02/01/20 05:11 Band Neutrophils % 0 % 02/01/20 05:11 Lymphocytes % (Manual) 20.0 % (13.4-35.0) 02/01/20 05:11 Reactive Lymphs % (Man) 0 % 02/01/20 05:11 Monocytes % (Manual) 4.0 % (0.0-7.3) 02/01/20 05:11 Eosinophils % (Manual) 0 % (0.0-4.3) 02/01/20 05:11 Basophils % (Manual) 0 % (0.0-1.8) 02/01/20 05:11 Metamyelocytes % 0 % 02/01/20 05:11 Myelocytes % 0 % 02/01/20 05:11 Promyelocytes % 0 % 02/01/20 05:11 Blast Cells % 0 % 02/01/20 05:11 Nucleated RBC % Not Reportable 02/01/20 05:11 Seg Neutrophils # Man 6.8 K/mm3 (1.8-7.7) 02/01/20 05:11 Band Neutrophils # 0.0 K/mm3 02/01/20 05:11 Lymphocytes # (Manual) 1.8 K/mm3 (1.2-5.4) 02/01/20 05:11 Abs React Lymphs (Man) 0.0 K/mm3 02/01/20 05:11 Monocytes # (Manual) 0.4 K/mm3 (0.0-0.8) 02/01/20 05:11 Eosinophils # (Manual) 0.0 K/mm3 (0.0-0.4) 02/01/20 05:11 Basophils # (Manual) 0.0 K/mm3 (0.0-0.1) 02/01/20 05:11 Metamyelocytes # 0.0 K/mm3 02/01/20 05:11 Myelocytes # 0.0 K/mm3 02/01/20 05:11 Promyelocytes # 0.0 K/mm3 02/01/20 05:11 Blast Cells # 0.0 K/mm3 02/01/20 05:11 WBC Morphology Not Reportable 02/01/20 05:11 Hypersegmented Neuts Not Reportable 02/01/20 05:11 Hyposegmented Neuts Not Reportable 02/01/20 05:11 Hypogranular Neuts Not Reportable 02/01/20 05:11 Smudge Cells Not Reportable 02/01/20 05:11 Toxic Granulation Not Reportable 02/01/20 05:11 Toxic Vacuolation Not Reportable 02/01/20 05:11 Dohle Bodies Not Reportable 02/01/20 05:11 Pelger-Huet Anomaly Not Reportable 02/01/20 05:11 Justin Rods Not Reportable 02/01/20 05:11 Platelet Estimate Consistent w auto 02/01/20 05:11 Clumped Platelets Not Reportable 02/01/20 05:11 Plt Clumps, EDTA Not Reportable 02/01/20 05:11 Large Platelets Not Reportable 02/01/20 05:11 Giant Platelets Not Reportable 02/01/20 05:11 Platelet Satelliting Not Reportable 02/01/20 05:11 Plt Morphology Comment Not Reportable 02/01/20 05:11 RBC Morphology Not Reportable 02/01/20 05:11 Dimorphic RBCs Not Reportable 02/01/20 05:11 Polychromasia Not Reportable 02/01/20 05:11 Hypochromasia Not Reportable 02/01/20 05:11 Poikilocytosis Not Reportable 02/01/20 05:11 Anisocytosis Few 02/01/20 05:11 Microcytosis Few 02/01/20 05:11 Macrocytosis Few 02/01/20 05:11 Spherocytes Not Reportable 02/01/20 05:11 Pappenheimer Bodies Not Reportable 02/01/20 05:11 Sickle Cells Not Reportable 02/01/20 05:11 Target Cells Not Reportable 02/01/20 05:11 Tear Drop Cells Not Reportable 02/01/20 05:11 Ovalocytes Few 02/01/20 05:11 Helmet Cells Not Reportable 02/01/20 05:11 [place] Bodies Not Reportable 02/01/20 05:11 [place] Rings Not Reportable 02/01/20 05:11 [place] Cells Not Reportable 02/01/20 05:11 Bite Cells Not Reportable 02/01/20 05:11 Crenated Cell Not Reportable 02/01/20 05:11 Elliptocytes Not Reportable 02/01/20 05:11 Acanthocytes (Spur) Not Reportable 02/01/20 05:11 Rouleaux Not Reportable 02/01/20 05:11 Hemoglobin C Crystals Not Reportable 02/01/20 05:11 Schistocytes Not Reportable 02/01/20 05:11 Malaria parasites Not Reportable 02/01/20 05:11 Fab Bodies Not Reportable 02/01/20 05:11 Hem Pathologist Commnt No 02/01/20 05:11 PT 21.6 Sec. (12.2-14.9) H 02/01/20 05:11 INR 1.88 (0.87-1.13) H 02/01/20 05:11 Sodium 133 mmol/L (137-145) L 02/02/20 05:46 Potassium 4.9 mmol/L (3.6-5.0) 02/02/20 05:46 Chloride 96.2 mmol/L (98-107) L 02/02/20 05:46 Carbon Dioxide 17 mmol/L (22-30) L 02/02/20 05:46 Anion Gap 25 mmol/L 02/02/20 05:46 BUN 70 mg/dL (9-20) H 02/02/20 05:46 Creatinine 3.7 mg/dL (0.8-1.5) H 02/02/20 05:46 Estimated GFR 16 ml/min 02/02/20 05:46 BUN/Creatinine Ratio 19 % 02/02/20 05:46 Glucose 128 mg/dL (75-100) H 02/02/20 05:46 POC Glucose 125 (70-105) H 02/02/20 07:40 Calcium 9.0 mg/dL (8.4-10.2) 02/02/20 05:46 Total Bilirubin 1.80 mg/dL (0.1-1.2) H 02/02/20 05:46 AST 78 units/L (5-40) H 02/02/20 05:46 ALT 346 units/L (7-56) H 02/02/20 05:46 Alkaline Phosphatase 139 units/L (35-129) H 02/02/20 05:46 Troponin T 0.207 ng/mL (0.00-0.029) H* 01/31/20 01:01 Total Protein 6.8 g/dL (6.3-8.2) 02/02/20 05:46 Albumin 3.5 g/dL (3.9-5) L 02/02/20 05:46 Albumin/Globulin Ratio 1.1 % 02/02/20 05:46 Triglycerides 137 mg/dL (2-149) 01/31/20 01:01 Cholesterol 82 mg/dL (50-199) 01/31/20 01:01 LDL Cholesterol Direct 36 mg/dL (50-130) L 01/31/20 01:01 HDL Cholesterol 19 mg/dL (40-59) L 01/31/20 01:01 Cholesterol/HDL Ratio 4.31 % 01/31/20 01:01 PTH Intact 40.93 pg/mL (15-65) 02/02/20 05:46 Urine Color [place] (Yellow) 02/02/20 05:09 Urine Turbidity Slightly-cloudy (Clear) 02/02/20 05:09 Urine pH 5.0 (5.0-7.0) 02/02/20 05:09 Ur Specific [place] 1.013 (1.003-1.030) 02/02/20 05:09 Urine Protein 30 mg/dl mg/dL (Negative) 02/02/20 05:09 Urine Glucose (UA) Neg mg/dL (Negative) 02/02/20 05:09 Urine Ketones Neg mg/dL (Negative) 02/02/20 05:09 Urine Blood Neg (Negative) 02/02/20 05:09 Urine Nitrite Neg (Negative) 02/02/20 05:09 Urine Bilirubin Neg (Negative) 02/02/20 05:09 Urine Urobilinogen 4.0 mg/dL (<2.0) 02/02/20 05:09 Ur Leukocyte Esterase Neg (Negative) 02/02/20 05:09 Urine WBC (Auto) 6.0 /HPF (0.0-6.0) 02/02/20 05:09 Urine RBC (Auto) 3.0 /HPF (0.0-6.0) 02/02/20 05:09 U Epithel Cells (Auto) < 1.0 /HPF (0-13.0) 02/02/20 05:09 Urine Bacteria (Auto) 1+ /HPF (Negative) 02/02/20 05:09 Amorphous Crystals Few 02/02/20 05:09 Hyaline Casts 9 /LPF 02/02/20 05:09 Urine Mucus Few /HPF 02/02/20 05:09 Urine Creatinine 165.1 mg/dL (0.1-20.0) H 02/02/20 05:09 Urine Sodium 12 mmol/L 02/02/20 05:09 Nasal Screen MRSA (PCR) Negative (Negative) 01/31/20 Unknown Coronavirus (PCR) Negative (Negative) 02/01/20 Unknown Menezes/IV: Voiding Method Urinal IV Catheter Type [right ej] Peripheral IV Active Medications - Current Medications Current Medications: Generic Name Dose Route Start Last Admin Trade Name Freq PRN Reason Stop Dose Admin Acetaminophen 650 mg 01/31/20 02:39 Tylenol PO Q4H PRN Pain MILD(1-3)/Fever >100.5/MORENO Dextrose 0 ml 01/31/20 02:40 D50w (25gm) Syringe IV Q30MIN PRN Hypoglycemia Protocol Sodium Bicarbonate 150 meq/ 1,150 mls @ 50 mls/hr 02/01/20 14:00 02/01/20 14:34 Sterile Water IV 50 mls/hr DIRECT RINA Administration Insulin Human Lispro 0 unit 01/31/20 07:30 02/01/20 22:06 Humalog SUB-Q 2 unit ACHS RINA Administration Protocol Magnesium Hydroxide 30 ml 01/31/20 02:39 Milk Of Magnesia PO Q4H PRN Constipation Ondansetron HCl 4 mg 01/31/20 02:39 Zofran IV Q8H PRN Nausea And Vomiting Sodium Chloride 10 ml 01/31/20 10:00 02/01/20 22:06 Sodium Chloride Flush Syringe 10 Ml IV 10 ml BID RINA Administration Sodium Chloride 10 ml 01/31/20 02:39 Sodium Chloride Flush Syringe 10 Ml IV PRN PRN LINE FLUSH Nutrition/Malnutrition Assess - Dietary Evaluation Nutrition/Malnutrition Findings: Nutrition Notes Start: 01/31/20 14:23 Freq: Status: Active Protocol: Document 01/31/20 14:23 LP (Rec: 01/31/20 14:29 LP [id number]) Nutrition Notes Need for Assessment generated from: MD Order Initial or Follow up Assessment Current Diagnosis CKD(stage I-IV),Diabetes, Hypertension,Heart Failure Other Pertinent Diagnosis hypotension, dehydration Current Diet Cardiac/consistent CHO Labs/Tests 01/30/20 Na 131 K 5 BUN 58 Cr 3 BG 159 Bili 1.9 Pertinent Medications Reviewed Height 5 ft 9 in Weight 88.451 kg [place] Body Weight (kg) 72.72 BMI 28.8 Weight Status Overweight Subjective/Other Information Consult for diet education. Pt exhausted and has been coughing. Pt states he is unable to eat and drinking very little but willing to try supplement. Burn Absent Trauma Absent GI Symptoms None Current % PO Negligible Minimum of two criteria Yes Energy Intake (non-severe) <75% Estimated Energy Requirement >7 days Fluid Accumulation Mild (non-severe) #1 Nutrition Diagnosis Malnutrition Etiology coughing As Evidenced by Signs and Symptoms Pt states not eating because of peristent cough, 2+ edema Is patient on ventilator? No Is Patient Ambulatory and/or Out of Bed Yes REE-([facility]-ambulatory/OOB) [ 2118.857 [id number]] Calculation Used for Recommendations [facility] Additional Notes Protein needs are 88-106g (1-1 .2g/kg) Fluid needs are 1ml/kcal Nutrition Intervention Change Diet Order: Continue Add Supplement/Snack (indicate name/kcal Glucerna TID Chocolate /protein ) Provides kCal: 660 Provides Protein (gm) 30 Goal #1 Meet at least 80% of kcal and protein needs Anticipated Discharge Needs: Cardiac/consistent CHO diet Follow-Up By: 02/03/20 Additional Comments Follow for intakes
[2020-02-02] MEDS: INSULIN LISPRO 100 UNIT/ML SUB-Q SCH ×4 (10:11→22:06)
--- NOTE | 2020-02-02 10:40 | Progress Note ---
Assessment and Plan 1. Acute kidney injury: Vasomotor ALONSO superimposed on CKD in the setting hypotension. UA is bland. Renal US pending. Monitor renal function. Renal prognosis is guarded. Avoid nephrotoxic agents. Meds dosage based on GFR. 2. FEN: Anion-gap metabolic acidosis, start on PO Sod bicarb, monitor. Volume overload, IV Bumex. Monitor lytes and volume status. 3. Hypotension: BP is low. Start on Midodrine. 4. H/o combined CHF: Monitor volume status. IV BUmex ordered. 5. Acute schizophrenic episode / bipolar 1 / shanice: Patient meets the requirement for acute inpatient psychiatric treatment. 6. Elevated LFTs: Likely from hypotension. Improving. Monitor. - General Appearance: Patient was seen and examined at the bedside. Pt c/o orthopnea. IV fluids were stopped due to sob. - General Appearance General appearance: well-developed, appears stated age, no distress HEENT: ATNC, GUSTAVO, hearing intact, vision intact Neck: neck supple, trachea midline Respiratory: faint bibasal rales heard Heart: S1S2, no murmur Gastrointestinal: soft, normoactive bowel sounds, not tender, not distended Integumentary: no rash, warm and dry Neurologic: no focal deficit, no asterixis, some confusion noted Ext: 1+ LE edema Psychiatric: cooperative Subjective Date of service: 02/02/20 Objective - Vital Signs Vital signs: Vital Signs - 12hr 02/01/20 02/02/20 02/02/20 23:37 00:00 05:40 Temperature Pulse Rate 75 Pulse Rate [ 72 Apical] Respiratory 20 20 24 Rate Blood Pressure 105/68 O2 Sat by Pulse 91 96 Oximetry 02/02/20 02/02/20 07:33 09:16 Temperature 97.5 F L Pulse Rate Pulse Rate [ Apical] Respiratory 18 Rate Blood Pressure 98/53 O2 Sat by Pulse 93 Oximetry - Lab 02/01/20 05:11 02/02/20 05:46 Most recent lab results Calcium 9.0 mg/dL (8.4-10.2) 02/02/20 05:46 Urine Creatinine 165.1 mg/dL (0.1-20.0) H 02/02/20 05:09 Urine Sodium 12 mmol/L 02/02/20 05:09 Medications & Allergies - Medications Allergies/Adverse Reactions: Allergies No Known Allergies Allergy (Unverified 01/22/20 19:59) Home Medications: Home Medications Medication Instructions Recorded Confirmed Last Taken Type Amiodarone [Cordarone 200 MG TAB] 200 mg PO BID 01/25/20 01/31/20 01/23/20 21:00 History Atorvastatin [Lipitor] 40 mg PO QHS 01/25/20 01/31/20 01/23/20 21:00 History Aspirin EC [Halfprin EC] 81 mg PO QDAY #30 tablet 01/26/20 01/31/20 Unknown Rx Gabapentin 300 mg PO QHS 01/31/20 01/31/20 Unknown History Potassium Chloride 10 meq PO QDAY 01/31/20 01/31/20 Unknown History Torsemide [Demadex] 20 mg PO BID 01/31/20 01/31/20 Unknown History Active Medications: Generic Name Dose Route Start Last Admin Trade Name Freq PRN Reason Stop Dose Admin Acetaminophen 650 mg 01/31/20 02:39 Tylenol PO Q4H PRN Pain MILD(1-3)/Fever >100.5/MORENO Dextrose 0 ml 01/31/20 02:40 D50w (25gm) Syringe IV Q30MIN PRN Hypoglycemia Protocol Sodium Bicarbonate 150 meq/ 1,150 mls @ 50 mls/hr 02/01/20 14:00 02/01/20 14:34 Sterile Water IV 50 mls/hr DIRECT RINA Administration Insulin Human Lispro 0 unit 01/31/20 07:30 02/02/20 10:11 Humalog SUB-Q Not Given ACHS RINA Protocol Magnesium Hydroxide 30 ml 01/31/20 02:39 Milk Of Magnesia PO Q4H PRN Constipation Ondansetron HCl 4 mg 01/31/20 02:39 Zofran IV Q8H PRN Nausea And Vomiting Sodium Chloride 10 ml 01/31/20 10:00 02/02/20 10:11 Sodium Chloride Flush Syringe 10 Ml IV 10 ml BID RINA Administration Sodium Chloride 10 ml 01/31/20 02:39 Sodium Chloride Flush Syringe 10 Ml IV PRN PRN LINE FLUSH
[2020-02-02] MEDS ORDERED: BUMETANIDE 1 MG/4 ML INJ IV SCH (11:30)
[2020-02-02] MEDS: SODIUM BICARBONATE 650 MG TAB PO SCH ×2 (15:16→21:57)
[2020-02-02] MEDS: MIDODRINE 2.5 MG TAB PO SCH ×2 (15:16→15:35)
[2020-02-02] MEDS: BUMETANIDE 2.5 MG/10 ML VIAL IV SCH ×2 (15:16→17:38)
--- NOTE | 2020-02-02 20:38 | Ultrasound Report ---
ULTRASOUND RENAL INDICATION: Acute renal failure.. COMPARISON: No relevant prior imaging study available. FINDINGS: RIGHT KIDNEY: Size: 10.4 cm. Echogenicity: Normal. Cortical thickness: Age-appropriate. Stones: None. Hydronephrosis: None. Cyst or mass: None. LEFT KIDNEY: Size: 8.4 cm. Echogenicity: Normal. Cortical thickness: 1.1 cm. Stones: None. Hydronephrosis: None. Cyst or mass: None. Urinary Bladder: No significant abnormality. Free Fluid: Mild to moderate amount of ascites is seen about the abdomen and pelvis. Additional Findings: None. IMPRESSION 1. Both kidneys have a normal sonographic appearance, age appropriate. No hydronephrosis or renal mas s noted. 2. Mild to moderate amount of free fluid/ascites is seen within the abdomen and pelvis.. Signer Name: Kandi Vera MD Signed: 02/02/2020 8:34 PM Workstation Name: [id number]
[2020-02-03 04:26] LABS: Hematocrit 34.1 % (35.5-45.6); Hemoglobin 10.9 gm/dl (11.8-15.2); Mean Corpuscular HGB Conc 32 % (32-34); Mean Corpuscular Volume 95 fl (84-94); Platelet Count 135 K/mm3 (140-440)
[2020-02-03 04:52] LABS: Calcium 8.6 mg/dL (8.4-10.2)
[2020-02-03 06:05] LABS: Anisocytosis 1+; Basophils % (Manual) 0 % (0.0-1.8); Total Cells Counted 100
[2020-02-03 06:06] LABS: Macrocytosis 1+; Platelet Estimate Consistent w Auto
[2020-02-03] MEDS: BUMETANIDE 2.5 MG/10 ML VIAL IV SCH ×2 (06:07→18:01)
[2020-02-03] MEDS: ACETAMINOPHEN 325 MG TAB PO PRN ×3 (06:08→18:07)
[2020-02-03] MEDS: INSULIN LISPRO 100 UNIT/ML SUB-Q SCH ×4 (09:44→21:42)
[2020-02-03] MEDS: MIDODRINE 2.5 MG TAB PO SCH ×3 (09:53→18:01)
[2020-02-03] MEDS: SODIUM BICARBONATE 650 MG TAB PO SCH ×3 (09:53→20:58)
--- NOTE | 2020-02-03 10:23 | Progress Note ---
Assessment and Plan 1. Acute kidney injury: Vasomotor ALONSO superimposed on CKD in the setting hypotension. UA is bland. Renal US negative for hydro. Monitor renal function. Creatinine level trending down. Renal prognosis is guarded. Avoid nephrotoxic agents. Meds dosage based on GFR. 2. FEN: Anion-gap metabolic acidosis, improving on PO Sod bicarb, monitor. Volume overload, IV Bumex. Monitor lytes and volume status. 3. Hypotension: BP is low. Continue Midodrine. 4. Urinary retention: Bladder scan prn and straight/turner catheter as needed. 5. H/o combined CHF: Monitor volume status. On IV Bumex BID. 6. Acute schizophrenic episode / bipolar 1 / shanice: Patient meets the requirement for acute inpatient psychiatric treatment. 7. Elevated LFTs: Likely from hypotension. Improving. Monitor. - General Appearance: Patient was seen and examined at the bedside. Breathing is better. - General Appearance General appearance: well-developed, appears stated age, no distress HEENT: ATNC, GUSTAVO, hearing intact, vision intact Neck: neck supple, trachea midline Respiratory: ctab Heart: S1S2, no murmur Gastrointestinal: soft, normoactive bowel sounds, not tender, not distended Integumentary: slight erythema of LEs Neurologic: no focal deficit, no asterixis, some confusion noted Ext: 1+ LE edema Psychiatric: cooperative Subjective Date of service: 02/03/20 Objective - Vital Signs Vital signs: Vital Signs - 12hr 02/02/20 02/02/20 02/03/20 22:25 23:10 04:54 Temperature 98.0 F 98.0 F Pulse Rate 66 100 H 72 Respiratory 20 16 Rate Blood Pressure 98/63 99/55 O2 Sat by Pulse 90 91 Oximetry 02/03/20 07:55 Temperature 97.5 F L Pulse Rate 70 Respiratory 18 Rate Blood Pressure 94/53 O2 Sat by Pulse 98 Oximetry - Lab 02/03/20 03:45 02/03/20 03:45 Most recent lab results Calcium 8.6 mg/dL (8.4-10.2) 02/03/20 03:45 Phosphorus 4.20 mg/dL (2.5-4.5) 02/03/20 03:45 Magnesium 2.30 mg/dL (1.7-2.3) 02/03/20 03:45 Urine Creatinine 165.1 mg/dL (0.1-20.0) H 02/02/20 05:09 Urine Sodium 12 mmol/L 02/02/20 05:09 Medications & Allergies - Medications Allergies/Adverse Reactions: Allergies No Known Allergies Allergy (Unverified 01/22/20 19:59) Home Medications: Home Medications Medication Instructions Recorded Confirmed Last Taken Type Amiodarone [Cordarone 200 MG TAB] 200 mg PO BID 01/25/20 01/31/20 01/23/20 21:00 History Atorvastatin [Lipitor] 40 mg PO QHS 01/25/20 01/31/20 01/23/20 21:00 History Aspirin EC [Halfprin EC] 81 mg PO QDAY #30 tablet 01/26/20 01/31/20 Unknown Rx Gabapentin 300 mg PO QHS 01/31/20 01/31/20 Unknown History Potassium Chloride 10 meq PO QDAY 01/31/20 01/31/20 Unknown History Torsemide [Demadex] 20 mg PO BID 01/31/20 01/31/20 Unknown History Active Medications: Generic Name Dose Route Start Last Admin Trade Name Freq PRN Reason Stop Dose Admin Acetaminophen 650 mg 01/31/20 02:39 02/03/20 09:56 Tylenol PO 650 mg Q4H PRN Administration Pain MILD(1-3)/Fever >100.5/MORENO Bumetanide 2 mg 02/02/20 12:00 02/03/20 06:07 Bumex IV 2 mg BID@0600,1800 RINA Administration Dextrose 0 ml 01/31/20 02:40 D50w (25gm) Syringe IV Q30MIN PRN Hypoglycemia Protocol Insulin Human Lispro 0 unit 01/31/20 07:30 02/03/20 09:44 Humalog SUB-Q Not Given ACHS RINA Protocol Magnesium Hydroxide 30 ml 01/31/20 02:39 Milk Of Magnesia PO Q4H PRN Constipation Midodrine 5 mg 02/02/20 12:00 02/03/20 09:53 Proamatine PO 5 mg TID@0800,1200,1600 RINA Administration Ondansetron HCl 4 mg 01/31/20 02:39 Zofran IV Q8H PRN Nausea And Vomiting Sodium Bicarbonate 650 mg 02/02/20 14:00 02/03/20 09:53 Sodium Bicarbonate PO 650 mg TID RINA Administration Sodium Chloride 10 ml 01/31/20 10:00 02/03/20 09:57 Sodium Chloride Flush Syringe 10 Ml IV 10 ml BID RINA Administration Sodium Chloride 10 ml 01/31/20 02:39 Sodium Chloride Flush Syringe 10 Ml IV PRN PRN LINE FLUSH
--- NOTE | 2020-02-03 11:35 | Progress Note ---
Assessment and Plan Assessment and plan: Hypotension. Patient is s/p IV fluid hydration and blood pressure has stabilized. Asymptomatic. ALONSO on CKD. Patient appears to have a baseline creatinine of 2.0 which has increased to 3.5 since admission. Nephrology consultation. History of combined CHF. Fluid management per nephrology. Elevated LFTs. Etiology likely secondary to hypotension. Acute schizophrenic episode/bipolar 1/manic. Psychiatry reports that the patient meets the requirement for acute inpatient psychiatric treatment. 02/02/2020. Creatinine remains at 3.7. Follow-up BMP in a.m. Continue IV fluid per nephrology recommendations. 02/03/2020. Renal ultrasound negative for hydronephrosis. Etiology is vasomotor nephropathy/ALONSO superimposed on CKD in the setting hypotension. Continue Midodrine for hypotension. History Interval history: No new issues overnight. Hospitalist Physical - Constitutional Vitals: Temp Pulse Resp BP Pulse Ox 97.5 F L 70 18 94/53 98 02/03/20 07:55 02/03/20 07:55 02/03/20 07:55 02/03/20 07:55 02/03/20 07:55 General appearance: Present: no acute distress, well-nourished - EENT Eyes: Present: PERRL, EOM intact ENT: hearing intact, clear oral mucosa, dentition normal - Neck Neck: Present: supple, normal ROM - Respiratory Respiratory effort: normal Respiratory: bilateral: CTA - Cardiovascular Rhythm: regular Heart Sounds: Present: S1 & S2. Absent: gallop, rub - Extremities Extremities: no ischemia, No edema, Full ROM - Abdominal General gastrointestinal: soft, non-tender, non-distended, normal bowel sounds - Integumentary Integumentary: Present: clear, warm, dry - Neurologic Neurologic: CNII-XII intact, moves all extremities HEART Score - HEART Score Troponin: Troponin T 0.207 ng/mL (0.00-0.029) H* 01/31/20 01:01 Results - Labs CBC & Chem 7: 02/03/20 03:45 02/03/20 03:45 Labs: Laboratory Last Values WBC 5.5 K/mm3 (4.5-11.0) 02/03/20 03:45 RBC 3.60 M/mm3 (3.65-5.03) L 02/03/20 03:45 Hgb 10.9 gm/dl (11.8-15.2) L 02/03/20 03:45 Hct 34.1 % (35.5-45.6) L 02/03/20 03:45 MCV 95 fl (84-94) H 02/03/20 03:45 MCH 30 pg (28-32) 02/03/20 03:45 MCHC 32 % (32-34) 02/03/20 03:45 RDW 18.0 % (13.2-15.2) H 02/03/20 03:45 Plt Count 135 K/mm3 (140-440) L 02/03/20 03:45 [place] % (Auto) [employer] 02/01/20 05:11 Baso % (Auto) [employer] 02/03/20 03:45 Add Manual Diff Complete 02/03/20 03:45 Total Counted 100 02/03/20 03:45 Seg Neuts % (Manual) 89.0 % (40.0-70.0) H 02/03/20 03:45 Band Neutrophils % 0 % 02/03/20 03:45 Lymphocytes % (Manual) 4.0 % (13.4-35.0) L 02/03/20 03:45 Reactive Lymphs % (Man) 0 % 02/03/20 03:45 Monocytes % (Manual) 4.0 % (0.0-7.3) 02/03/20 03:45 Eosinophils % (Manual) 3.0 % (0.0-4.3) 02/03/20 03:45 Basophils % (Manual) 0 % (0.0-1.8) 02/03/20 03:45 Metamyelocytes % 0 % 02/03/20 03:45 Myelocytes % 0 % 02/03/20 03:45 Promyelocytes % 0 % 02/03/20 03:45 Blast Cells % 0 % 02/03/20 03:45 Nucleated RBC % Not Reportable 02/03/20 03:45 Seg Neutrophils # Man 4.9 K/mm3 (1.8-7.7) 02/03/20 03:45 Band Neutrophils # 0.0 K/mm3 02/03/20 03:45 Lymphocytes # (Manual) 0.2 K/mm3 (1.2-5.4) L 02/03/20 03:45 Abs React Lymphs (Man) 0.0 K/mm3 02/03/20 03:45 Monocytes # (Manual) 0.2 K/mm3 (0.0-0.8) 02/03/20 03:45 Eosinophils # (Manual) 0.2 K/mm3 (0.0-0.4) 02/03/20 03:45 Basophils # (Manual) 0.0 K/mm3 (0.0-0.1) 02/03/20 03:45 Metamyelocytes # 0.0 K/mm3 02/03/20 03:45 Myelocytes # 0.0 K/mm3 02/03/20 03:45 Promyelocytes # 0.0 K/mm3 02/03/20 03:45 Blast Cells # 0.0 K/mm3 02/03/20 03:45 WBC Morphology Not Reportable 02/03/20 03:45 Hypersegmented Neuts Not Reportable 02/03/20 03:45 Hyposegmented Neuts Not Reportable 02/03/20 03:45 Hypogranular Neuts Not Reportable 02/03/20 03:45 Smudge Cells Not Reportable 02/03/20 03:45 Toxic Granulation Not Reportable 02/03/20 03:45 Toxic Vacuolation Not Reportable 02/03/20 03:45 Dohle Bodies Not Reportable 02/03/20 03:45 Pelger-Huet Anomaly Not Reportable 02/03/20 03:45 Justin Rods Not Reportable 02/03/20 03:45 Platelet Estimate Consistent w auto 02/03/20 03:45 Clumped Platelets Not Reportable 02/03/20 03:45 Plt Clumps, EDTA Not Reportable 02/03/20 03:45 Large Platelets Not Reportable 02/03/20 03:45 Giant Platelets Not Reportable 02/03/20 03:45 Platelet Satelliting Not Reportable 02/03/20 03:45 Plt Morphology Comment Not Reportable 02/03/20 03:45 RBC Morphology Not Reportable 02/03/20 03:45 Dimorphic RBCs Not Reportable 02/03/20 03:45 Polychromasia Not Reportable 02/03/20 03:45 Hypochromasia Not Reportable 02/03/20 03:45 Poikilocytosis Not Reportable 02/03/20 03:45 Anisocytosis 1+ 02/03/20 03:45 Microcytosis Not Reportable 02/03/20 03:45 Macrocytosis 1+ 02/03/20 03:45 Spherocytes Not Reportable 02/03/20 03:45 Pappenheimer Bodies Not Reportable 02/03/20 03:45 Sickle Cells Not Reportable 02/03/20 03:45 Target Cells Not Reportable 02/03/20 03:45 Tear Drop Cells Not Reportable 02/03/20 03:45 Ovalocytes Not Reportable 02/03/20 03:45 Helmet Cells Not Reportable 02/03/20 03:45 [place] Bodies Not Reportable 02/03/20 03:45 [place] Rings Not Reportable 02/03/20 03:45 [place] Cells Not Reportable 02/03/20 03:45 Bite Cells Not Reportable 02/03/20 03:45 Crenated Cell Not Reportable 02/03/20 03:45 Elliptocytes Not Reportable 02/03/20 03:45 Acanthocytes (Spur) Not Reportable 02/03/20 03:45 Rouleaux Not Reportable 02/03/20 03:45 Hemoglobin C Crystals Not Reportable 02/03/20 03:45 Schistocytes Not Reportable 02/03/20 03:45 Malaria parasites Not Reportable 02/03/20 03:45 Fab Bodies Not Reportable 02/03/20 03:45 Hem Pathologist Commnt No 02/03/20 03:45 PT 21.6 Sec. (12.2-14.9) H 02/01/20 05:11 INR 1.88 (0.87-1.13) H 02/01/20 05:11 Sodium 137 mmol/L (137-145) 02/03/20 03:45 Potassium 4.0 mmol/L (3.6-5.0) 02/03/20 03:45 Chloride 100.7 mmol/L (98-107) 02/03/20 03:45 Carbon Dioxide 20 mmol/L (22-30) L 02/03/20 03:45 Anion Gap 20 mmol/L 02/03/20 03:45 BUN 67 mg/dL (9-20) H 02/03/20 03:45 Creatinine 3.3 mg/dL (0.8-1.5) H 02/03/20 03:45 Estimated GFR 19 ml/min 02/03/20 03:45 BUN/Creatinine Ratio 20 % 02/03/20 03:45 Glucose 125 mg/dL (75-100) H 02/03/20 03:45 POC Glucose 111 (70-105) H 02/03/20 08:08 Calcium 8.6 mg/dL (8.4-10.2) 02/03/20 03:45 Phosphorus 4.20 mg/dL (2.5-4.5) 02/03/20 03:45 Magnesium 2.30 mg/dL (1.7-2.3) 02/03/20 03:45 Total Bilirubin 1.80 mg/dL (0.1-1.2) H 02/02/20 05:46 AST 78 units/L (5-40) H 02/02/20 05:46 ALT 346 units/L (7-56) H 02/02/20 05:46 Alkaline Phosphatase 139 units/L (35-129) H 02/02/20 05:46 Troponin T 0.207 ng/mL (0.00-0.029) H* 01/31/20 01:01 Total Protein 6.8 g/dL (6.3-8.2) 02/02/20 05:46 Albumin 3.5 g/dL (3.9-5) L 02/02/20 05:46 Albumin/Globulin Ratio 1.1 % 02/02/20 05:46 Triglycerides 137 mg/dL (2-149) 01/31/20 01:01 Cholesterol 82 mg/dL (50-199) 01/31/20 01:01 LDL Cholesterol Direct 36 mg/dL (50-130) L 01/31/20 01:01 HDL Cholesterol 19 mg/dL (40-59) L 01/31/20 01:01 Cholesterol/HDL Ratio 4.31 % 01/31/20 01:01 PTH Intact 40.93 pg/mL (15-65) 02/02/20 05:46 Urine Color [place] (Yellow) 02/02/20 05:09 Urine Turbidity Slightly-cloudy (Clear) 02/02/20 05:09 Urine pH 5.0 (5.0-7.0) 02/02/20 05:09 Ur Specific [place] 1.013 (1.003-1.030) 02/02/20 05:09 Urine Protein 30 mg/dl mg/dL (Negative) 02/02/20 05:09 Urine Glucose (UA) Neg mg/dL (Negative) 02/02/20 05:09 Urine Ketones Neg mg/dL (Negative) 02/02/20 05:09 Urine Blood Neg (Negative) 02/02/20 05:09 Urine Nitrite Neg (Negative) 02/02/20 05:09 Urine Bilirubin Neg (Negative) 02/02/20 05:09 Urine Urobilinogen 4.0 mg/dL (<2.0) 02/02/20 05:09 Ur Leukocyte Esterase Neg (Negative) 02/02/20 05:09 Urine WBC (Auto) 6.0 /HPF (0.0-6.0) 02/02/20 05:09 Urine RBC (Auto) 3.0 /HPF (0.0-6.0) 02/02/20 05:09 U Epithel Cells (Auto) < 1.0 /HPF (0-13.0) 02/02/20 05:09 Urine Bacteria (Auto) 1+ /HPF (Negative) 02/02/20 05:09 Amorphous Crystals Few 02/02/20 05:09 Hyaline Casts 9 /LPF 02/02/20 05:09 Urine Mucus Few /HPF 02/02/20 05:09 Urine Creatinine 165.1 mg/dL (0.1-20.0) H 02/02/20 05:09 Urine Sodium 12 mmol/L 02/02/20 05:09 Nasal Screen MRSA (PCR) Negative (Negative) 01/31/20 Unknown Coronavirus (PCR) Negative (Negative) 02/01/20 Unknown Menezes/IV: Voiding Method Urinal IV Catheter Type [right ej] Peripheral IV Active Medications - Current Medications Current Medications: Generic Name Dose Route Start Last Admin Trade Name Freq PRN Reason Stop Dose Admin Acetaminophen 650 mg 01/31/20 02:39 02/03/20 09:56 Tylenol PO 650 mg Q4H PRN Administration Pain MILD(1-3)/Fever >100.5/MORENO Bumetanide 2 mg 02/02/20 12:00 02/03/20 06:07 Bumex IV 2 mg BID@0600,1800 RINA Administration Dextrose 0 ml 01/31/20 02:40 D50w (25gm) Syringe IV Q30MIN PRN Hypoglycemia Protocol Insulin Human Lispro 0 unit 06/26/20 07:30 02/03/20 09:44 Humalog SUB-Q Not Given ACHS RINA Protocol Magnesium Hydroxide 30 ml 01/31/20 02:39 Milk Of Magnesia PO Q4H PRN Constipation Midodrine 5 mg 02/02/20 12:00 02/03/20 09:53 Proamatine PO 5 mg TID@0800,1200,1600 RINA Administration Ondansetron HCl 4 mg 01/31/20 02:39 Zofran IV Q8H PRN Nausea And Vomiting Sodium Bicarbonate 650 mg 02/02/20 14:00 02/03/20 09:53 Sodium Bicarbonate PO 650 mg TID RINA Administration Sodium Chloride 10 ml 01/31/20 10:00 02/03/20 09:57 Sodium Chloride Flush Syringe 10 Ml IV 10 ml BID RINA Administration Sodium Chloride 10 ml 01/31/20 02:39 Sodium Chloride Flush Syringe 10 Ml IV PRN PRN LINE FLUSH Nutrition/Malnutrition Assess - Dietary Evaluation Nutrition/Malnutrition Findings: Nutrition Notes Start: 01/31/20 14:23 Freq: Status: Active Protocol: Document 01/31/20 14:23 LP (Rec: 01/31/20 14:29 LP [id number]) Nutrition Notes Need for Assessment generated from: MD Order Initial or Follow up Assessment Current Diagnosis CKD(stage I-IV),Diabetes, Hypertension,Heart Failure Other Pertinent Diagnosis hypotension, dehydration Current Diet Cardiac/consistent CHO Labs/Tests 01/30/20 Na 131 K 5 BUN 58 Cr 3 BG 159 Bili 1.9 Pertinent Medications Reviewed Height 5 ft 9 in Weight 88.451 kg [place] Body Weight (kg) 72.72 BMI 28.8 Weight Status Overweight Subjective/Other Information Consult for diet education. Pt exhausted and has been coughing. Pt states he is unable to eat and drinking very little but willing to try supplement. Burn Absent Trauma Absent GI Symptoms None Current % PO Negligible Minimum of two criteria Yes Energy Intake (non-severe) <75% Estimated Energy Requirement >7 days Fluid Accumulation Mild (non-severe) #1 Nutrition Diagnosis Malnutrition Etiology coughing As Evidenced by Signs and Symptoms Pt states not eating because of peristent cough, 2+ edema Is patient on ventilator? No Is Patient Ambulatory and/or Out of Bed Yes REE-([facility]-ambulatory/OOB) [ [id number] [id number]] Calculation Used for Recommendations [place] Additional Notes Protein needs are 88-106g (1-1 .2g/kg) Fluid needs are 1ml/kcal Nutrition Intervention Change Diet Order: Continue Add Supplement/Snack (indicate name/kcal Glucerna TID Chocolate /protein ) Provides kCal: 660 Provides Protein (gm) 30 Goal #1 Meet at least 80% of kcal and protein needs Anticipated Discharge Needs: Cardiac/consistent CHO diet Follow-Up By: 02/03/20 Additional Comments Follow for intakes
[2020-02-04] MEDS: BUMETANIDE 2.5 MG/10 ML VIAL IV SCH ×2 (05:48→18:19)
[2020-02-04] MEDS: SODIUM BICARBONATE 650 MG TAB PO SCH ×2 (08:35→13:19)
[2020-02-04] MEDS: INSULIN LISPRO 100 UNIT/ML SUB-Q SCH ×4 (08:35→21:25)
[2020-02-04] MEDS: MIDODRINE 2.5 MG TAB PO SCH ×3 (08:35→18:14)
[2020-02-04 10:05] LABS: Calcium 8.8 mg/dL (8.4-10.2)
--- NOTE | 2020-02-04 10:38 | Progress Note ---
Assessment and Plan 1. Acute kidney injury: Vasomotor ALONSO superimposed on CKD in the setting hypotension. UA is bland. Renal US negative for hydro. Monitor renal function. Creatinine level trending down. Renal prognosis is guarded. Avoid nephrotoxic agents. Meds dosage based on GFR. 2. FEN: Anion-gap metabolic acidosis, improved, will stop Sod bicarb, monitor. Volume overload, IV Bumex. Monitor lytes and volume status. 3. Hypotension: BP is low. Increase Midodrine. 4. Urinary retention: Bladder scan prn and straight/turner catheter as needed. 5. H/o combined CHF: Monitor volume status. On IV Bumex BID. 6. Acute schizophrenic episode / bipolar 1 / shanice. Seen by Isreal. 7. Elevated LFTs: Likely from hypotension. Improving. Monitor. - General Appearance: Patient was seen and examined at the bedside. Breathing is better. - General Appearance General appearance: well-developed, appears stated age, no distress HEENT: ATNC, G[place], hearing intact, vision intact Neck: neck supple, trachea midline Respiratory: ctab Heart: S1S2, no murmur Gastrointestinal: soft, normoactive bowel sounds, not tender, not distended Integumentary: slight erythema of LEs Neurologic: no focal deficit, no asterixis Ext: 1 to 2+ LE edema Psychiatric: cooperative Subjective Date of service: 02/04/20 Objective - Vital Signs Vital signs: Vital Signs - 12hr 02/03/20 02/03/20 02/04/20 22:43 23:00 02:00 Temperature 97.5 F L Pulse Rate 75 81 Respiratory 18 18 Rate Blood Pressure 101/61 O2 Sat by Pulse 96 98 Oximetry 02/04/20 02/04/20 02/04/20 04:28 07:48 10:11 Temperature 97.6 F 98.3 F Pulse Rate 77 Respiratory 18 18 18 Rate Blood Pressure 98/58 105/60 O2 Sat by Pulse 97 Oximetry - Lab 02/03/20 03:45 02/04/20 07:13 Most recent lab results Calcium 8.8 mg/dL (8.4-10.2) 02/04/20 07:13 Phosphorus 4.20 mg/dL (2.5-4.5) 02/03/20 03:45 Magnesium 2.30 mg/dL (1.7-2.3) 02/03/20 03:45 Urine Creatinine 165.1 mg/dL (0.1-20.0) H 02/02/20 05:09 Urine Sodium 12 mmol/L 02/02/20 05:09 Medications & Allergies - Medications Allergies/Adverse Reactions: Allergies No Known Allergies Allergy (Unverified 01/22/20 19:59) Home Medications: Home Medications Medication Instructions Recorded Confirmed Last Taken Type Amiodarone [Cordarone 200 MG TAB] 200 mg PO BID 01/25/20 01/31/20 01/23/20 21:00 History Atorvastatin [Lipitor] 40 mg PO QHS 01/25/20 01/31/20 01/23/20 21:00 History Aspirin EC [Halfprin EC] 81 mg PO QDAY #30 tablet 01/26/20 01/31/20 Unknown Rx Gabapentin 300 mg PO QHS 01/31/20 01/31/20 Unknown History Potassium Chloride 10 meq PO QDAY 01/31/20 01/31/20 Unknown History Torsemide [Demadex] 20 mg PO BID 01/31/20 01/31/20 Unknown History Active Medications: Generic Name Dose Route Start Last Admin Trade Name Freq PRN Reason Stop Dose Admin Acetaminophen 650 mg 01/31/20 02:39 02/03/20 18:07 Tylenol PO 650 mg Q4H PRN Administration Pain MILD(1-3)/Fever >100.5/MORENO Bumetanide 2 mg 02/02/20 12:00 02/04/20 05:48 Bumex IV 2 mg BID@0600,1800 RINA Administration Dextrose 0 ml 01/31/20 02:40 D50w (25gm) Syringe IV Q30MIN PRN Hypoglycemia Protocol Insulin Human Lispro 0 unit 01/31/20 07:30 02/04/20 08:35 Humalog SUB-Q Not Given ACHS RINA Protocol Magnesium Hydroxide 30 ml 01/31/20 02:39 Milk Of Magnesia PO Q4H PRN Constipation Midodrine 5 mg 02/02/20 12:00 02/04/20 08:35 Proamatine PO 5 mg TID@0800,1200,1600 RINA Administration Ondansetron HCl 4 mg 01/31/20 02:39 Zofran IV Q8H PRN Nausea And Vomiting Sodium Bicarbonate 650 mg 02/02/20 14:00 02/04/20 08:35 Sodium Bicarbonate PO 650 mg TID RINA Administration Sodium Chloride 10 ml 01/31/20 10:00 02/04/20 09:48 Sodium Chloride Flush Syringe 10 Ml IV 10 ml BID RINA Administration Sodium Chloride 10 ml 01/31/20 02:39 02/03/20 18:04 Sodium Chloride Flush Syringe 10 Ml IV 10 ml PRN PRN Administration LINE FLUSH
--- NOTE | 2020-02-04 19:07 | Progress Note ---
Assessment and Plan Assessment and plan: Hypotension. Patient is s/p IV fluid hydration and blood pressure has stabilized. Asymptomatic. ALONSO on CKD. Patient appears to have a baseline creatinine of 2.0 which has increased to 3.5 since admission. Nephrology consultation. History of combined CHF. Fluid management per nephrology. Elevated LFTs. Etiology likely secondary to hypotension. Acute schizophrenic episode/bipolar 1/manic. Psychiatry reports that the patient meets the requirement for acute inpatient psychiatric treatment. 02/02/2020. Creatinine remains at 3.7. Follow-up BMP in a.m. Continue IV fluid per nephrology recommendations. 02/03/2020. Renal ultrasound negative for hydronephrosis. Etiology is vasomotor nephropathy/ALONSO superimposed on CKD in the setting hypotension. Continue Midodrine for hypotension. 02/04/20: Patient renal function slightly improved creatinine 3.3 today Case management setting up placement to personal residential, possible discharge home tomorrow if stable I discussed the case with fire prevention bureau captain History Interval history: Patient seen and examined at the bedside this afternoon Patient's chart and medications reviewed Patient feels slightly better complains of generalized weakness Vital signs noted Hospitalist Physical - Constitutional Vitals: Temp Pulse Resp BP Pulse Ox 98.1 F 72 18 108/64 95 02/04/20 16:17 02/04/20 18:12 02/04/20 18:12 02/04/20 18:12 02/04/20 18:12 General appearance: Present: no acute distress, well-nourished - EENT Eyes: Present: PERRL, EOM intact - Neck Neck: Present: supple, normal ROM - Respiratory Respiratory effort: normal Respiratory: bilateral: diminished, negative: rales, rhonchi, wheezing - Cardiovascular Rhythm: regular Heart Sounds: Present: S1 & S2 - Extremities Extremities: no ischemia, No edema - Abdominal General gastrointestinal: soft, non-tender, non-distended, normal bowel sounds - Integumentary Integumentary: Present: clear, warm - Psychiatric Psychiatric: appropriate mood/affect, cooperative - Neurologic Neurologic: moves all extremities HEART Score - HEART Score Troponin: Troponin T 0.207 ng/mL (0.00-0.029) H* 01/31/20 01:01 Results - Labs CBC & Chem 7: 02/03/20 03:45 02/04/20 07:13 Labs: Laboratory Last Values WBC 5.5 K/mm3 (4.5-11.0) 02/03/20 03:45 RBC 3.60 M/mm3 (3.65-5.03) L 02/03/20 03:45 Hgb 10.9 gm/dl (11.8-15.2) L 02/03/20 03:45 Hct 34.1 % (35.5-45.6) L 02/03/20 03:45 MCV 95 fl (84-94) H 02/03/20 03:45 MCH 30 pg (28-32) 02/03/20 03:45 MCHC 32 % (32-34) 02/03/20 03:45 RDW 18.0 % (13.2-15.2) H 02/03/20 03:45 Plt Count 135 K/mm3 (140-440) L 02/03/20 03:45 [place] % (Auto) Paper Rewinder 02/01/20 05:11 Baso % (Auto) Paper Rewinder 02/03/20 03:45 Add Manual Diff Complete 02/03/20 03:45 Total Counted 100 02/03/20 03:45 Seg Neuts % (Manual) 89.0 % (40.0-70.0) H 02/03/20 03:45 Band Neutrophils % 0 % 02/03/20 03:45 Lymphocytes % (Manual) 4.0 % (13.4-35.0) L 02/03/20 03:45 Reactive Lymphs % (Man) 0 % 02/03/20 03:45 Monocytes % (Manual) 4.0 % (0.0-7.3) 02/03/20 03:45 Eosinophils % (Manual) 3.0 % (0.0-4.3) 02/03/20 03:45 Basophils % (Manual) 0 % (0.0-1.8) 02/03/20 03:45 Metamyelocytes % 0 % 02/03/20 03:45 Myelocytes % 0 % 02/03/20 03:45 Promyelocytes % 0 % 02/03/20 03:45 Blast Cells % 0 % 02/03/20 03:45 Nucleated RBC % Not Reportable 02/03/20 03:45 Seg Neutrophils # Man 4.9 K/mm3 (1.8-7.7) 02/03/20 03:45 Band Neutrophils # 0.0 K/mm3 02/03/20 03:45 Lymphocytes # (Manual) 0.2 K/mm3 (1.2-5.4) L 02/03/20 03:45 Abs React Lymphs (Man) 0.0 K/mm3 02/03/20 03:45 Monocytes # (Manual) 0.2 K/mm3 (0.0-0.8) 02/03/20 03:45 Eosinophils # (Manual) 0.2 K/mm3 (0.0-0.4) 02/03/20 03:45 Basophils # (Manual) 0.0 K/mm3 (0.0-0.1) 02/03/20 03:45 Metamyelocytes # 0.0 K/mm3 02/03/20 03:45 Myelocytes # 0.0 K/mm3 02/03/20 03:45 Promyelocytes # 0.0 K/mm3 02/03/20 03:45 Blast Cells # 0.0 K/mm3 02/03/20 03:45 WBC Morphology Not Reportable 02/03/20 03:45 Hypersegmented Neuts Not Reportable 02/03/20 03:45 Hyposegmented Neuts Not Reportable 02/03/20 03:45 Hypogranular Neuts Not Reportable 02/03/20 03:45 Smudge Cells Not Reportable 02/03/20 03:45 Toxic Granulation Not Reportable 02/03/20 03:45 Toxic Vacuolation Not Reportable 02/03/20 03:45 Dohle Bodies Not Reportable 02/03/20 03:45 Pelger-Huet Anomaly Not Reportable 02/03/20 03:45 Justin Rods Not Reportable 02/03/20 03:45 Platelet Estimate Consistent w auto 02/03/20 03:45 Clumped Platelets Not Reportable 02/03/20 03:45 Plt Clumps, EDTA Not Reportable 02/03/20 03:45 Large Platelets Not Reportable 02/03/20 03:45 Giant Platelets Not Reportable 02/03/20 03:45 Platelet Satelliting Not Reportable 02/03/20 03:45 Plt Morphology Comment Not Reportable 02/03/20 03:45 RBC Morphology Not Reportable 02/03/20 03:45 Dimorphic RBCs Not Reportable 02/03/20 03:45 Polychromasia Not Reportable 02/03/20 03:45 Hypochromasia Not Reportable 02/03/20 03:45 Poikilocytosis Not Reportable 02/03/20 03:45 Anisocytosis 1+ 02/03/20 03:45 Microcytosis Not Reportable 02/03/20 03:45 Macrocytosis 1+ 02/03/20 03:45 Spherocytes Not Reportable 02/03/20 03:45 Pappenheimer Bodies Not Reportable 02/03/20 03:45 Sickle Cells Not Reportable 02/03/20 03:45 Target Cells Not Reportable 02/03/20 03:45 Tear Drop Cells Not Reportable 02/03/20 03:45 Ovalocytes Not Reportable 02/03/20 03:45 Helmet Cells Not Reportable 02/03/20 03:45 Albert-Tovey Bodies Not Reportable 02/03/20 03:45 Cobb Rings Not Reportable 02/03/20 03:45 Mirian Cells Not Reportable 02/03/20 03:45 Bite Cells Not Reportable 02/03/20 03:45 Crenated Cell Not Reportable 02/03/20 03:45 Elliptocytes Not Reportable 02/03/20 03:45 Acanthocytes (Spur) Not Reportable 02/03/20 03:45 Rouleaux Not Reportable 02/03/20 03:45 Hemoglobin C Crystals Not Reportable 02/03/20 03:45 Schistocytes Not Reportable 02/03/20 03:45 Malaria parasites Not Reportable 02/03/20 03:45 Fab Bodies Not Reportable 02/03/20 03:45 Hem Pathologist Commnt No 02/03/20 03:45 PT 21.6 Sec. (12.2-14.9) H 02/01/20 05:11 INR 1.88 (0.87-1.13) H 02/01/20 05:11 Sodium 140 mmol/L (137-145) 02/04/20 07:13 Potassium 3.7 mmol/L (3.6-5.0) 02/04/20 07:13 Chloride 100 mmol/L (98-107) 02/04/20 07:13 Carbon Dioxide 23 mmol/L (22-30) 02/04/20 07:13 Anion Gap 21 mmol/L 02/04/20 07:13 BUN 66 mg/dL (9-20) H 02/04/20 07:13 Creatinine 3.1 mg/dL (0.8-1.5) H 02/04/20 07:13 Estimated GFR 20 ml/min 02/04/20 07:13 BUN/Creatinine Ratio 21 % 02/04/20 07:13 Glucose 123 mg/dL (75-100) H 02/04/20 07:13 POC Glucose 151 (70-105) H 02/04/20 16:28 Calcium 8.8 mg/dL (8.4-10.2) 02/04/20 07:13 Phosphorus 4.20 mg/dL (2.5-4.5) 02/03/20 03:45 Magnesium 2.30 mg/dL (1.7-2.3) 02/03/20 03:45 Total Bilirubin 1.80 mg/dL (0.1-1.2) H 02/02/20 05:46 AST 78 units/L (5-40) H 02/02/20 05:46 ALT 346 units/L (7-56) H 02/02/20 05:46 Alkaline Phosphatase 139 units/L (35-129) H 02/02/20 05:46 Troponin T 0.207 ng/mL (0.00-0.029) H* 01/31/20 01:01 Total Protein 6.8 g/dL (6.3-8.2) 02/02/20 05:46 Albumin 3.5 g/dL (3.9-5) L 02/02/20 05:46 Albumin/Globulin Ratio 1.1 % 02/02/20 05:46 Triglycerides 137 mg/dL (2-149) 01/31/20 01:01 Cholesterol 82 mg/dL (50-199) 01/31/20 01:01 LDL Cholesterol Direct 36 mg/dL (50-130) L 01/31/20 01:01 HDL Cholesterol 19 mg/dL (40-59) L 01/31/20 01:01 Cholesterol/HDL Ratio 4.31 % 01/31/20 01:01 PTH Intact 40.93 pg/mL (15-65) 02/02/20 05:46 Urine Color [place] (Yellow) 02/02/20 05:09 Urine Turbidity Slightly-cloudy (Clear) 02/02/20 05:09 Urine pH 5.0 (5.0-7.0) 02/02/20 05:09 Ur Specific [place] 1.013 (1.003-1.030) 02/02/20 05:09 Urine Protein 30 mg/dl mg/dL (Negative) 02/02/20 05:09 Urine Glucose (UA) Neg mg/dL (Negative) 02/02/20 05:09 Urine Ketones Neg mg/dL (Negative) 02/02/20 05:09 Urine Blood Neg (Negative) 02/02/20 05:09 Urine Nitrite Neg (Negative) 02/02/20 05:09 Urine Bilirubin Neg (Negative) 02/02/20 05:09 Urine Urobilinogen 4.0 mg/dL (<2.0) 02/02/20 05:09 Ur Leukocyte Esterase Neg (Negative) 02/02/20 05:09 Urine WBC (Auto) 6.0 /HPF (0.0-6.0) 02/02/20 05:09 Urine RBC (Auto) 3.0 /HPF (0.0-6.0) 02/02/20 05:09 U Epithel Cells (Auto) < 1.0 /HPF (0-13.0) 02/02/20 05:09 Urine Bacteria (Auto) 1+ /HPF (Negative) 02/02/20 05:09 Amorphous Crystals Few 02/02/20 05:09 Hyaline Casts 9 /LPF 02/02/20 05:09 Urine Mucus Few /HPF 02/02/20 05:09 Urine Creatinine 165.1 mg/dL (0.1-20.0) H 02/02/20 05:09 Urine Sodium 12 mmol/L 02/02/20 05:09 Nasal Screen MRSA (PCR) Negative (Negative) 01/31/20 Unknown Coronavirus (PCR) Negative (Negative) 02/01/20 Unknown Menezes/IV: Voiding Method Urinal IV Catheter Type [right ej] Peripheral IV Active Medications - Current Medications Current Medications: Generic Name Dose Route Start Last Admin Trade Name Freq PRN Reason Stop Dose Admin Acetaminophen 650 mg 01/31/20 02:39 02/03/20 18:07 Tylenol PO 650 mg Q4H PRN Administration Pain MILD(1-3)/Fever >100.5/MORENO Bumetanide 2 mg 02/02/20 12:00 02/04/20 18:19 Bumex IV 2 mg BID@0600,1800 RINA Administration Dextrose 0 ml 01/31/20 02:40 D50w (25gm) Syringe IV Q30MIN PRN Hypoglycemia Protocol Insulin Human Lispro 0 unit 01/31/20 07:30 02/04/20 17:00 Humalog SUB-Q 2 unit ACHS RINA Administration Protocol Magnesium Hydroxide 30 ml 01/31/20 02:39 Milk Of Magnesia PO Q4H PRN Constipation Midodrine 5 mg 02/02/20 12:00 02/04/20 18:14 Proamatine PO 5 mg TID@0800,1200,1600 RINA Administration Ondansetron HCl 4 mg 01/31/20 02:39 Zofran IV Q8H PRN Nausea And Vomiting Sodium Bicarbonate 650 mg 02/02/20 14:00 02/04/20 13:19 Sodium Bicarbonate PO 650 mg TID RINA Administration Sodium Chloride 10 ml 01/31/20 10:00 02/04/20 09:48 Sodium Chloride Flush Syringe 10 Ml IV 10 ml BID RINA Administration Sodium Chloride 10 ml 01/31/20 02:39 02/03/20 18:04 Sodium Chloride Flush Syringe 10 Ml IV 10 ml PRN PRN Administration LINE FLUSH Nutrition/Malnutrition Assess - Dietary Evaluation Nutrition/Malnutrition Findings: Nutrition Notes Start: 01/31/20 14:2 3 Freq: Status: Active Protocol: Document 02/03/20 12:01 (Rec: 02/03/20 12:04 [id number]) Nutrition Notes Initial or Follow up Reassessment Current Diagnosis CKD(stage I-IV),Diabetes, Hypertension,Heart Failure Other Pertinent Diagnosis hypotension, dehydration Current Diet Renal consistent CHO Labs/Tests BUN 67 Cr 3.3 BG 125 Pertinent Medications Reviewed Height 5 ft 9 in Weight 88.451 kg [place] Body Weight (kg) 72.72 BMI 28.8 Weight Status Overweight Subjective/Other Information Pt states he is a picky eater. Food preferences noted. Pt not coughing today. He does like the Glucerna but not daily. Will D/C for now. Burn Absent Trauma Absent GI Symptoms None Current % PO Poor (25-49%) Minimum of two criteria Yes Energy Intake (non-severe) <75% Estimated Energy Requirement >7 days Fluid Accumulation Mild (non-severe) #1 Nutrition Diagnosis Malnutrition Diagnosis Progress(for reassessment Continues documentation) Is patient on ventilator? No Is Patient Ambulatory and/or Out of Bed Yes REE-([facility]-ambulatory/OOB) [ 2118.857 [id number]] Calculation Used for Recommendations [facility] Additional Notes Protein needs are 88-106g (1-1 .2g/kg) Fluid needs are 1ml/kcal Nutrition Intervention Change Diet Order: Continue Add Supplement/Snack (indicate name/kcal D/C and resume daily once ones /protein ) piled in room consumed. Goal #1 Meet at least 80% of kcal and protein needs Anticipated Discharge Needs: Cardiac/consistent CHO diet Follow-Up By: 02/05/20 Additional Comments Follow for intakes
[2020-02-04] MEDS ORDERED: MIDODRINE 2.5 MG TAB PO ONE (20:00)
[2020-02-04] MEDS: ACETAMINOPHEN 325 MG TAB PO PRN (21:21)
[2020-02-05] MEDS: BUMETANIDE 2.5 MG/10 ML VIAL IV SCH (05:02)
[2020-02-05 06:21] LABS: Albumin 3.1 g/dL (3.9-5); Calcium 8.5 mg/dL (8.4-10.2)
[2020-02-05] MEDS: INSULIN LISPRO 100 UNIT/ML SUB-Q SCH ×2 (08:30→11:45)
[2020-02-05] MEDS: MIDODRINE 2.5 MG TAB PO SCH ×2 (08:35→11:42)
[2020-02-05 08:44] VITALS: BP 104/64
--- NOTE | 2020-02-05 08:52 | Discharge Summary ---
Providers - Providers Date of Admission: 01/31/20 15:00 Date of discharge: 02/05/20 Attending physician: GEORGE KESSLER 01/31/20 02:40 Consult to Dietitian/Nutrition [CONS] Routine Physician Instructions: Reason For Exam: Reason for Consult: Diet education 01/31/20 06:57 Consult to Mental Health [CONS] Routine Reason For Exam: depression 02/01/20 09:40 Consult to Physician [CONS] Routine Comment: Consulting Provider: ADELA VILLARREAL Physician Instructions: Reason For Exam: ALONSO on CKD 02/02/20 07:21 Consult to Wound/ET Nurse [CONS] Routine Reason For Exam: wound eval: sacral skin tear/wound Primary care physician: TOLL TICKET CLERK Hospitalization Condition: Stable Disposition: DC/[place]-70 ANOTHER TYPE HLTHCARE Time spent for discharge: 32 min Core Measure Documentation - Palliative Care Palliative Care/ Comfort Measures: Not Applicable - Core Measures Any of the following diagnoses?: none Exam - Constitutional Vitals: Temp Pulse Resp BP Pulse Ox 98.2 F 71 18 104/64 96 02/05/20 07:40 02/05/20 04:59 02/05/20 07:40 02/05/20 07:40 02/05/20 04:59 General appearance: Present: no acute distress, well-nourished, other (Confused) - EENT Eyes: Present: PERRL, EOM intact - Neck Neck: Present: supple, normal ROM - Respiratory Respiratory effort: normal Respiratory: bilateral: diminished, negative: rales, rhonchi, wheezing - Cardiovascular Rhythm: regular Heart Sounds: Present: S1 & S2 - Extremities Extremities: no ischemia, No edema - Abdominal General gastrointestinal: Present: soft, non-tender, non-distended, normal bowel sounds - Integumentary Integumentary: Present: clear, warm - Musculoskeletal Musculoskeletal: strength equal bilaterally - Psychiatric Psychiatric: cooperative, other (Confused at times) - Neurologic Neurologic: moves all extremities Plan Activity: advance as tolerated, fall precautions Diet: other (Cardiac diet) Additional Instructions: Advised to follow private psychiatrist in 1 to 2 weeks. Fall precautions Follow up with: PRIMARY MD LAINA [Primary Care Provider] - 7 Days ADELA VILLARREAL MD [Staff Physician] - 7 Days SHAZIA BOLTON MD [Staff Physician] - 14 Days Prescriptions: Bumetanide [Bumex 1 mg tab] 1 mg PO BID #30 tab Midodrine HCl 10 mg PO TID #60 tablet
--- NOTE | 2020-02-05 08:59 | Progress Note ---
Assessment and Plan 1. Acute kidney injury: Vasomotor ALONSO superimposed on CKD in the setting hypotension. UA is bland. Renal US negative for hydro. Monitor renal function. Creatinine level trending down. Renal prognosis is guarded. Avoid nephrotoxic agents. Meds dosage based on GFR. 2. FEN: Anion-gap metabolic acidosis, improved, monitor. Volume overload, IV Bumex. Monitor lytes and volume status. 3. Hypotension: On Midodrine. 4. Urinary retention: Bladder scan prn and straight/turner catheter as needed. 5. H/o combined CHF: Monitor volume status. On IV Bumex BID. 6. Acute schizophrenic episode / bipolar 1 / shanice. Seen by Isreal. 7. Elevated LFTs: Likely from hypotension. Improving. Monitor. F/u with me in 1-2 weeks. - General Appearance: Patient was seen and examined at the bedside. Doing ok. - General Appearance General appearance: well-developed, appears stated age, no distress HEENT: ATNC, G[place], hearing intact, vision intact Neck: neck supple, trachea midline Respiratory: ctab Heart: S1S2, no murmur Gastrointestinal: soft, normoactive bowel sounds, not tender, not distended Integumentary: slight erythema of LEs Neurologic: no focal deficit, no asterixis Ext: 1 to 2+ LE edema Psychiatric: cooperative Subjective Date of service: 02/05/20 Objective - Vital Signs Vital signs: Vital Signs - 12hr 02/04/20 02/05/20 02/05/20 22:00 01:47 02:00 Temperature 96.3 F L Pulse Rate 68 70 Respiratory 20 20 Rate Blood Pressure 104/60 O2 Sat by Pulse 94 Oximetry 02/05/20 02/05/20 04:59 07:40 Temperature 97.4 F L 98.2 F Pulse Rate 71 Respiratory 20 18 Rate Blood Pressure 107/65 104/64 O2 Sat by Pulse 96 Oximetry - Lab 02/03/20 03:45 02/05/20 05:31 Most recent lab results Calcium 8.5 mg/dL (8.4-10.2) 02/05/20 05:31 Phosphorus 4.20 mg/dL (2.5-4.5) 02/03/20 03:45 Magnesium 2.30 mg/dL (1.7-2.3) 02/03/20 03:45 Urine Creatinine 165.1 mg/dL (0.1-20.0) H 02/02/20 05:09 Urine Sodium 12 mmol/L 02/02/20 05:09 Medications & Allergies - Medications Allergies/Adverse Reactions: Allergies No Known Allergies Allergy (Unverified 01/22/20 19:59) Home Medications: Home Medications Medication Instructions Recorded Confirmed Last Taken Type Amiodarone [Cordarone 200 MG TAB] 200 mg PO BID 01/25/20 01/31/20 01/23/20 21:00 History Atorvastatin [Lipitor] 40 mg PO QHS 01/25/20 01/31/20 01/23/20 21:00 History Aspirin EC [Halfprin EC] 81 mg PO QDAY #30 tablet 01/26/20 01/31/20 Unknown Rx Gabapentin 300 mg PO QHS 01/31/20 01/31/20 Unknown History Bumetanide [Bumex 1 mg tab] 1 mg PO BID #30 tab 02/05/20 Unknown Rx Midodrine HCl 10 mg PO TID #60 tablet 02/05/20 Unknown Rx Active Medications: Generic Name Dose Route Start Last Admin Trade Name Freq PRN Reason Stop Dose Admin Acetaminophen 650 mg 01/31/20 02:39 02/04/20 21:21 Tylenol PO 650 mg Q4H PRN Administration Pain MILD(1-3)/Fever >100.5/MORENO Bumetanide 2 mg 02/02/20 12:00 02/05/20 05:02 Bumex IV Not Given BID@0600,1800 RINA Dextrose 0 ml 01/31/20 02:40 D50w (25gm) Syringe IV Q30MIN PRN Hypoglycemia Protocol Insulin Human Lispro 0 unit 01/31/20 07:30 02/05/20 08:30 Humalog SUB-Q Not Given ACHS RINA Protocol Magnesium Hydroxide 30 ml 01/31/20 02:39 Milk Of Magnesia PO Q4H PRN Constipation Midodrine 10 mg 02/05/20 08:00 02/05/20 08:35 Proamatine PO 10 mg TID@0800,1200,1600 RINA Administration Ondansetron HCl 4 mg 01/31/20 02:39 Zofran IV Q8H PRN Nausea And Vomiting Sodium Chloride 10 ml 01/31/20 10:00 02/04/20 21:22 Sodium Chloride Flush Syringe 10 Ml IV 10 ml BID RINA Administration Sodium Chloride 10 ml 01/31/20 02:39 02/03/20 18:04 Sodium Chloride Flush Syringe 10 Ml IV 10 ml PRN PRN Administration LINE FLUSH
== END 2020-02-05 11:48 | disposition home or self-care (01) | DRG 314 ==
LOC: ED 22:32 → 4A 01-31 03:02 → OBSVTOIN 01-31 15:00
PROVIDERS: ADMIT Internal Medicine Geriatric Medicine; ATTEND Internal Medicine
DX: I95.9 Hypotension, unspecified (principal); N17.0 Acute kidney failure with tubular necrosis; E87.1 Hypo-osmolality and hyponatremia; I13.0 Hypertensive heart and chronic kidney disease with heart failure and stage 1 through stage 4 chronic kidney disease, or unspecified chronic kidney disease; F30.9 Manic episode, unspecified; I42.8 Other cardiomyopathies; E87.2 Acidosis; I50.9 Heart failure, unspecified; E86.0 Dehydration; I48.91 Unspecified atrial fibrillation; E11.22 Type 2 diabetes mellitus with diabetic chronic kidney disease; N18.3 Chronic kidney disease, stage 3 (moderate); E11.40 Type 2 diabetes mellitus with diabetic neuropathy, unspecified; E87.70 Fluid overload, unspecified; F20.9 Schizophrenia, unspecified; Z95.0 Presence of cardiac pacemaker; Z87.891 Personal history of nicotine dependence; Z79.4 Long term (current) use of insulin
CPT/HCPCS: 36415; 71045; 76770; 80048; 80053; 80061; 81001; 82570; 82962; 83735; 83970; 84100; 84300; 84484; 85007; 85025; 85027; 85610; 93005; 96360; G0378; J1815; J1940; J7030; U0003-CS